=== PATIENT | female | born 1955 | race African-American/Black ===

== ENCOUNTER 2024-06-19 13:03 | Emergency (ER) | payer BC, MEDICAID ==
[~2024-06-19] VITALS: Ht 162.6 cm; Wt 52.0 kg
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
[2024-06-19] MEDS ORDERED: CYCL-837 PO (17:15)
[2024-06-19 17:46] VITALS: BP 124/78; PULSE 85; RESP 16; TEMP 97.4; O2SAT 98
== END 2024-06-19 17:50 | disposition home or self-care (01) ==
LOC: ER 13:03
DX: S20.212A Contusion of left front wall of thorax, initial encounter (principal); S40.012A Contusion of left shoulder, initial encounter; S00.83XA Contusion of other part of head, initial encounter; Z88.2 Allergy status to sulfonamides; Z88.5 Allergy status to narcotic agent; Y08.89XA Assault by other specified means, initial encounter; Y93.89 Activity, other specified; Y92.89 Other specified places as the place of occurrence of the external cause; Y99.8 Other external cause status
CPT/HCPCS: 71101; 73030

== ENCOUNTER 2024-07-19 10:03 | Emergency (ER) | payer BC, MEDICAID ==
[~2024-07-19] VITALS: Ht 167.6 cm; Wt 68.0 kg
[~2024-07-19 10:03] MED LIST: CYCL-837 PO
[2024-07-19] MEDS: ONDANSETRON HCL 4 MG/2 ML VIAL IV ONE (10:38)
[2024-07-19] MEDS: SODIUM CHLORIDE 0.9% 1,000 ML IV ONE (10:38)
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
--- NOTE | 2024-07-19 11:05 | DVH ---
CHEST RADIOGRAPH Indication: sob Technique: Single frontal view of the chest was obtained COMPARISON: None FINDINGS: Lines and Tubes: None Lungs: Mild congestion Pleura: No effusion. No pneumothorax. Cardiomediastinal contours: Unremarkable Bones: Unremarkable IMPRESSION: Mild congestion
[2024-07-19] MEDS: MORPHINE SULFATE INJ 2 MG/ml SYRG IV ONE (11:19)
[2024-07-19 11:22] LABS: Basophils # (auto) 0.1 10 ^3/uL (0-0.2); Eosinophils # (auto) 0 10 ^3/uL (0-0.8); Eosinophils % (auto) 0.4 % (0.0-7.0); Hematocrit 39.4 % (36.0-46.0); Hemoglobin 12.9 g/dL (12.2-16.2); Lymphocytes # (auto) 2.2 10 ^3/uL (0.4-5.4); Lymphocytes % (auto) 26.2 % (10.0-50.0); Mean Corpuscular Hemoglobin 27.1 pg (28.0-32.0); Mean Corpuscular Hgb Conc. 32.8 g/dL (32.0-36.0); Mean Corpuscular Volume 82.5 fL (80.0-100.0); Monocytes # (auto) 0.5 10 ^3/uL (0-1.3); Monocytes % (auto) 6.4 % (0.0-12.0); Neutrophils # (auto) 5.5 10 ^3/uL (1.6-8.6); Platelet Count (auto) 199 10^3/uL (140-450); Red Blood Cells 4.78 10^6/uL (4.0-5.20); Red Cell Distribution Width 13.9 % (11.8-14.3); White Blood Cell 8.3 10^3/uL (4.4-10.8)
[2024-07-19 11:40] LABS: Albumin 3.8 g/dL (3.2-4.8); Anion Gap 14 (5-15); BUN/Creatinine Ratio 14.1 (10.0-20.0); Bilirubin, Total 0.8 mg/dL (0.2-1.0); Blood Urea Nitrogen 12 mg/dL (9-23); Calcium 8.9 mg/dL (8.7-10.4); Carbon Dioxide 22 mmol/L (20-31); Chloride 101 mmol/L (98-107); Sodium 137 mmol/L (136-145); Total Protein 6.5 g/dL (5.7-8.2)
[2024-07-19 12:02] LABS: Alanine Aminotransferase 90 U/L (7-40); Alkaline Phosphatase 146 U/L (46-116); Aspartate Aminotransferase 77 U/L (13-40); Glucose 301 mg/dL (74-106)
[2024-07-19 12:29] VITALS: PULSE 80; RESP 18; O2SAT 99
[2024-07-19] MEDS: InsuLIN REG 1unit/0.01ml Soln (100units/ml) IV ONE (13:25)
[2024-07-19] MEDS: FUROSEMIDE 20 MG/2 ML VIAL IV ONE (13:27)
--- NOTE | 2024-07-19 18:57 | DVH ---
Procedure: US BiLat Lower DVT Study Date and Requested Time: 07/19/2024 06:29 PM History: LE edema uneven ,concern for DVT Comparison: None Technique: Multiple high resolution anderson-scale images with and without compression obtained of the bi lateral lower extremity veins, including the common femoral vein, deep femoral vein, proximal mid and distal superficial femoral vein, and popliteal vein. Additional limited images of the greater saphen ous vein also obtained. Augmentation performed as indicated. Color and spectral doppler flow images o btained as indicated. Findings: No visible intraluminal venous thrombus. No evidence of incompressibility or abnormal color or spectr al Doppler flow visualized in the bilateral lower extremity veins including, the common femoral vein, deep femoral vein, proximal mid and distal superficial femoral vein, and popliteal vein. Greater sap henous vein grossly unremarkable. Soft tissue edema bilateral lower extremities. Impression: No sonographic evidence of bilateral lower extremity deep venous thrombosis.
[2024-07-19 19:43] LABS: COVID19 ANTIGEN SOFIA FIA NEGATIVE (NEGATIVE)
[2024-07-19 19:50] LABS: Rapid Influenza A Negative (Negative)
[2024-07-19 19:51] LABS: Rapid Influenza B Positive (Negative)
[2024-07-19 19:57] VITALS: BP 137/59; TEMP 98.2
[2024-07-19 20:18] VITALS: PULSE 112; RESP 18; O2SAT 98
[2024-07-19] MEDS ORDERED: OSEL75CA5 PO (20:22)
[2024-07-19] MEDS: OSELTAMIVIR 75 MG CAP PO ONE (20:48)
--- NOTE | 2024-07-19 21:40 | DVHDS2 ---
Discharge Summary Date of Admission Date of Discharge: Jul 19, 2024 Labs/Diagnostic Data: Laboratory Results Test 07/19/24 18:30 07/19/24 11:00 Influenza Type A Antigen Negative (Negative) Influenza Type B Antigen Positive (Negative) SARS-CoV-2 Antigen (Rapid) Negative (NEGATIVE) White Blood Count 8.3 10^3/uL (4.4-10.8) Red Blood Count 4.78 10^6/uL (4.0-5.20) Hemoglobin 12.9 g/dL (12.2-16.2) Hematocrit 39.4 % (36.0-46.0) Mean Corpuscular Volume 82.5 fL (80.0-100.0) Mean Corpuscular Hemoglobin 27.1 pg (28.0-32.0) Mean Corpuscular Hemoglobin Concent 32.8 g/dL (32.0-36.0) Red Cell Distribution Width 13.9 % (11.8-14.3) Platelet Count 199 10^3/uL (140-450) Mean Platelet Volume 9.1 fL (6.9-10.8) Neutrophils (%) (Auto) 66.0 % (37.0-80.0) Lymphocytes (%) (Auto) 26.2 % (10.0-50.0) Monocytes (%) (Auto) 6.4 % (0.0-12.0) Eosinophils (%) (Auto) 0.4 % (0.0-7.0) Basophils (%) (Auto) 1.0 % (0.0-2.0) Neutrophils # (Auto) 5.5 10 ^3/uL (1.6-8.6) Lymphocytes # (Auto) 2.2 10 ^3/uL (0.4-5.4) Monocytes # (Auto) 0.5 10 ^3/uL (0-1.3) Eosinophils # (Auto) 0 10 ^3/uL (0-0.8) Basophils # (Auto) 0.1 10 ^3/uL (0-0.2) Nucleated Red Blood Cells 0.0 % Sodium Level 137 mmol/L (136-145) Potassium Level 4.0 mmol/L (3.5-5.1) Chloride Level 101 mmol/L (98-107) Carbon Dioxide Level 22 mmol/L (20-31) Anion Gap 14 (5-15) Blood Urea Nitrogen 12 mg/dL (9-23) Creatinine 0.85 mg/dL (0.550-1.02) Glomerular Filtration Rate Calc 73 mL/min (>90) BUN/Creatinine Ratio 14.1 (10.0-20.0) Serum Glucose 301 mg/dL (74-106) Calcium Level 8.9 mg/dL (8.7-10.4) Total Bilirubin 0.8 mg/dL (0.2-1.0) Aspartate Amino Transferase (AST) 77 U/L (13-40) Alanine Aminotransferase (ALT) 90 U/L (7-40) Alkaline Phosphatase 146 U/L (46-116) Troponin I High Sensitivity 5 ng/L (</=34) B-Type Natriuretic Peptide 209.91 pg/mL (0-100) Total Protein 6.5 g/dL (5.7-8.2) Albumin 3.8 g/dL (3.2-4.8) Other Laboratory Tests 07/19/24 11:00 Brief Hx & Hospital Course: Patient is a 69-year-old female with past medical history of type 2 diabetes who presents with complaints of vomiting and generalized weakness that began last night. Patient notes she has not been able to tolerate any p.o. intake. On arrival to the ER, patient's vomiting had solved. Vitals revealed sinus tachycardia with some hypertension. Patient was saturating labs did not reveal any leukocytosis CMP was notable for some mildly elevated LFTs with AST/ALT 77/90 and alk phos 146. Troponin was nonelevated. BMP was within normal limits. Patient was tested for influenza and COVID and was noted to test positive for influenza B. Patient was started on Tamiflu 75 mg twice daily for 5 days. She was discharged on this medication. Patient's weakness subsequently improved. Patient was noted to have some lower extremity swelling. Ultrasound lower extremities negative for DVT. She was given Lasix 20 mg IV x 1. Patient was discharged home in stable condition. She is to follow-up with cardiology for CHF evaluation. [facility] case management arrange follow-up appointments. Condition at Discharge: Good Final Diagnosis/Problems List Influenza B Secondary Diagnosis: Type 2 diabetes Lower extremity edema Discharge Disposition: Home Discharge Instruct/Medications Diet: Regular Activity: No Restrictions, As Tolerated Follow Up/Referral: Follow up with PCP. Medications: Tamiflu 75mg twice a day for 5 days for flu. Discharge Statement: "Patient was advised to return to the ER or call 911 if any headaches, dizziness, shortness of breath, chest pain, abdominal pain, bleeding, fevers, or worsening of medical condition. Patient was counseled about treatment plan, medications, possible side effects, patientverbalized understanding. All questions were answered to the best of my ability. This discharge took greater then 30 minutes in planning, reviewing documentation, counseling the patient, and discussing with other team members." ASSESSMENT ASSESSMENT Assessment Influenza B SHERRON MAYNARD DO Jul 19, 2024 21:39
--- NOTE | 2024-07-20 07:01 | ECG ---
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
== END 2024-07-19 20:56 | disposition home or self-care (01) ==
LOC: EDBD 10:03 → ER 10:03 → EDUNIT# 10:03 → ER 20:56
DX: I11.0 Hypertensive heart disease with heart failure (principal); I50.9 Heart failure, unspecified; E11.65 Type 2 diabetes mellitus with hyperglycemia; R11.2 Nausea with vomiting, unspecified; M79.89 Other specified soft tissue disorders; J44.9 Chronic obstructive pulmonary disease, unspecified; Z88.2 Allergy status to sulfonamides; Z88.5 Allergy status to narcotic agent; Z79.899 Other long term (current) drug therapy; Z85.05 Personal history of malignant neoplasm of liver; Z85.118 Personal history of other malignant neoplasm of bronchus and lung; Z20.822 Contact with and (suspected) exposure to COVID-19
CPT/HCPCS: 36415; 71045; 80053; 83880; 84484; 85025; 87426; 87804; 93005; 93970; 96361; 96374; 96375; 99285; J1815; J1940; J2270; J2405; J7030

== ENCOUNTER 2024-11-25 20:09 | Emergency (ER) | payer OTHER, BC, MEDICAID ==
[~2024-11-25] VITALS: Ht 162.6 cm; Wt 63.0 kg
[~2024-11-25 20:09] MED LIST changes: +OSEL75CA5 PO
[2024-11-25 20:41] LABS: Basophils # (auto) 0.1 10 ^3/uL (0-0.2); Basophils % (auto) 0.8 % (0.0-2.0); Eosinophils # (auto) 0 10 ^3/uL (0-0.8); Lymphocytes # (auto) 2.5 10 ^3/uL (0.4-5.4); Monocytes # (auto) 0.8 10 ^3/uL (0-1.3); White Blood Cell 11.3 10^3/uL (4.4-10.8)
[2024-11-25 20:43] LABS: Eosinophils % (auto) 0.1 % (0.0-7.0); Hemoglobin 12.4 g/dL (12.2-16.2); Lymphocytes % (auto) 21.7 % (10.0-50.0); Mean Corpuscular Hemoglobin 26.6 pg (28.0-32.0); Mean Corpuscular Hgb Conc. 32.6 g/dL (32.0-36.0); Mean Corpuscular Volume 81.8 fL (80.0-100.0); Monocytes % (auto) 7.3 % (0.0-12.0); Neutrophils # (auto) 7.9 10 ^3/uL (1.6-8.6); Neutrophils % (auto) 70.1 % (37.0-80.0); Nucleated Red Blood Cells % 0.1 %; Platelet Count (auto) 189 10^3/uL (140-450); Red Blood Cells 4.65 10^6/uL (4.0-5.20); Red Cell Distribution Width 14.9 % (11.8-14.3)
[2024-11-25 20:50] LABS: Chloride 96 mmol/L (98-107); Sodium 130 mmol/L (136-145)
--- NOTE | 2024-11-25 20:50 | ED.PDOC ---
HPI Comments This is a 69-year-old female who comes in with chief complaint of chest pain over the past two days. The patient is coming from home with stabbing chest pain that radiates to the lateral chest. The patient describes the chest pain is substernal and was rated as an 8/10. The patient did not take any aspirin at home and did not receive any aspirin EN route by the paramedics. She is also complaining of some shortness for breath as well as nausea and vomiting. She has had leg swelling bilaterally for the past three months. She does have a history of CHF and states that she is compliant with her medications. She denies any fever but she is experiencing a nonproductive cough. She has somewhat of a poor historian and states that her daughter is one the takes care of her. Chief Complaint: Chest Pain Time Seen by MD: 20:12 Primary Care Provider: JAVIER Mckeon Notes: Nurses Notes, Medications, Allergies (Allergies to codeine, sulfa) Allergies: Coded Allergies: Codeine (Verified Allergy, Unknown, 06/19/24) Sulfa Antibiotics (Verified Allergy, Unknown, 06/19/24) Home Meds Active Scripts Oseltamivir Phosphate (Tamiflu) 75 Mg Cap, 75 MG PO BID, #10 CAP 0 Refills Prov:SHERRON MAYNARD DO 07/19/24 Cyclobenzaprine Hcl (Cyclobenzaprine Hcl) 5 Mg Tab, 1 TAB PO TID PRN, #30 TAB Prov:BOSTON LOPEZ 06/19/24 Information Source: Patient Mode of Arrival: EMS Severity: Moderate Timing: Days (Symptoms started two days ago) Duration: Since onset Prehospital treatment: Cavalry Officer, IVF Location: Substernal Radiation: Other (Across the entire chest) Quality: Sharp, Stabbing Onset: At Rest Cardiac Risk Factors: HTN, Diabetes PE Risk Factors: None History of: Similar pain in past Modifying Factors: Nothing Associated Signs and Symptoms: SOB, N/V Past Medical History PAST MEDICAL HISTORY: Arthritis, Cancer, COPD, DM, HTN, Liver Surgical History (Other): renal surgery BOARD OPERATOR History: No Pertinent BOARD OPERATOR History Family History Family History: Family hx of Cancer Social History Smoker: Non-Smoker Alcohol: Denies ETOH Use Drugs: Marijuana Lives In: Home Constitutional: denies: chills, diaphoresis, fatigue, fever, malaise, sweats, weakness, others EENTM: denies: blurred vision, double vision, ear bleeding, ear discharge, ear drainage, ear pain, ear ringing, eye pain, eye redness, hearing loss, mouth pain, mouth swelling, nasal discharge, nose bleeding, nose congestion, nose pain, photophobia, tearing, throat pain, throat swelling, voice changes, others Respiratory: reports: cough, shortness of breath; denies: hemoptysis, orthopnea, SOB at rest, SOB with excertion, stridor, wheezing, others Cardiovascular: reports: chest pain; denies: dizzy spells, diaphoresis, Dyspnea on exertion, edema, irregular heart beat, left arm pain, lightheadedness, palpitations, PND, syncope, others Gastrointestinal: denies: abdomen distended, abdominal pain, blood streaked bowels, constipated, diarrhea, dysphagia, difficulty swallowing, hematemesis, melena, nausea, poor appetite, poor fluid intake, rectal bleeding, rectal pain, vomiting, others Genitourinary: denies: abnormal vagina bleeding, burning, dyspareunia, dysuria, flank pain, frequency, hematuria, incontinence, pain, , vagina discharge, urgency, others Neurological: denies: dizziness, fainting, headache, left sided numbness, left sided weakness, numbness, paresthesia, pre-existing deficit, right sided numbness, right sided weakness, seizure, speech problems, tingling, tremors, weakness, others Musculoskeletal: reports: others (Bilateral leg swelling); denies: back pain, gout, joint pain, joint swelling, muscle pain, muscle stiffness, neck pain Integumetry: denies: bruises, change in color, change in hair/nails, dryness, laceration, lesions, lumps, rash, wounds, others Allergic/Immunocompromised: denies: Difficulty Healing, Frequent Infections, Hives, Itching, others Hematologic/Lymphatic: denies: anemia, blood clots, easy bleeding, easy bruising, swollen glands, others Endocrine: denies: excessive hunger, excessive sweating, excessive thirst, excessive urination, flushing, intolerance to cold, intolerance to heat, unexplained weight gain, unexplained weight loss, others Psychiatric: denies: anxiety, bipolar disorder, depression, hopeless, panic disorder, schizophrenia, sleepless, suicidal, others Physical Exam General Appearance: Moderate Distress, Thin HEENT: Normal ENT Inspection, Pharynx Normal, TMs Normal Neck: Full Range of Motion, Non-Tender, Normal, Normal Inspection Respiratory: Chest Non-Tender, Lungs Clear, No Accessory Muscle Use, No Respiratory Distress, Normal Breath Sounds Cardiovascular: No Edema, No JVD, No Murmur, No Gallop, Normal Peripheral Pulses, Regular Rate/Rhythm Breast Exam: Deferred Gastrointestinal: No Organomegaly, Non Tender, No Pulsatile Mass, Normal Bowel Sounds, Soft Genitalia: Deferred Pelvic: Deferred Rectal: Deferred Extremities: Leg edema, Pedal edema Musculoskeletal : Apperance: Normal Neurologic: Alert, political geographer II-XII nml as Tested, No Motor Deficits, Normal Affect, Normal Mood, No Sensory Deficits Cerebellar Function: Normal Reflexes: Normal Skin: Dry, Normal Color, Warm Lymphatic: No Adenopathy EKG EKG : Pulse Rate (adult): 105 [place]: Normal Cardiac Rhythm: ST Hypertrophy: LAE ST: Nonsp Was a procedure done? Was a procedure done?: No CP Differential Dx Differential Diagnosis: Angina, CT, Pulmonary Embolus Differential Diagnosis: CHF Differential Diagnosis: Pericarditis X-Ray, Labs, Meds, VS Vital Signs Date Time Temp Pulse Resp B/P (MAP) Pulse Ox O2 Delivery O2 Flow Rate FiO2 11/25/24 21:00 98.3 106 22 159/89 (112) 96 98.3 11/25/24 20:50 105 11/25/24 20:15 105 11/25/24 20:10 98.2 106 20 146/89 (108) 97 98.2 Lab Test 11/25/24 21:27 11/25/24 20:33 Range/Units Troponin I High Sensitivity Pending 12 </=34 ng/L White Blood Count 11.3 H 4.4-10.8 10^3/uL Red Blood Count 4.65 4.0-5.20 10^6/uL Hemoglobin 12.4 12.2-16.2 g/dL Hematocrit 38.0 36.0-46.0 % Mean Corpuscular Volume 81.8 80.0-100.0 fL Mean Corpuscular Hemoglobin 26.6 L 28.0-32.0 pg Mean Corpuscular Hemoglobin Concent 32.6 32.0-36.0 g/dL Red Cell Distribution Width 14.9 H 11.8-14.3 % Platelet Count 189 140-450 10^3/uL Mean Platelet Volume 9.3 6.9-10.8 fL Neutrophils (%) (Auto) 70.1 37.0-80.0 % Lymphocytes (%) (Auto) 21.7 10.0-50.0 % Monocytes (%) (Auto) 7.3 0.0-12.0 % Eosinophils (%) (Auto) 0.1 0.0-7.0 % Basophils (%) (Auto) 0.8 0.0-2.0 % Neutrophils # (Auto) 7.9 1.6-8.6 10 ^3/uL Lymphocytes # (Auto) 2.5 0.4-5.4 10 ^3/uL Monocytes # (Auto) 0.8 0-1.3 10 ^3/uL Eosinophils # (Auto) 0 0-0.8 10 ^3/uL Basophils # (Auto) 0.1 0-0.2 10 ^3/uL Nucleated Red Blood Cells 0.1 % Sodium Level 130 L 136-145 mmol/L Potassium Level 4.0 3.5-5.1 mmol/L Chloride Level 96 L 98-107 mmol/L Carbon Dioxide Level 24 20-31 mmol/L Anion Gap 10 5-15 Blood Urea Nitrogen 10 9-23 mg/dL Creatinine 0.69 0.550-1.02 mg/dL Glomerular Filtration Rate Calc 93 >90 mL/min BUN/Creatinine Ratio 14.5 10.0-20.0 Serum Glucose 392 H 74-106 mg/dL Calcium Level 8.9 8.7-10.4 mg/dL B-Type Natriuretic Peptide 360.26 0-100 pg/mL Current Medications Medications (Trade) Dose Ordered Sig/[facility] Route Start Time Stop Time Status Last Admin Aspirin 162 mg ONCE ONCE PO 11/25/24 20:30 11/25/24 20:31 DC 11/25/24 20:59 IV Hep-Lock was established The patient is being given aspirin here in the emergency department's The patient's CBC shows an elevated white blood cell count 11.3 The rest of the CBC is within normal limits The chemistry panel is within normal limits The repeat EKG shows normal sinus rhythm at 98 The troponin level x2 are negative. At this time we did speak to the [facility] physician and did explain that we thought that the patient may need to be admitted. Dr. Kent will be doing the final disposition on this patient and our plan is to send the patient home to follow up with Pulmonary Images Reviewed?: Images reviewed and evaluated by me Time of 1ST Reevaluation: 20:49 Reevaluation 1ST: Unchanged Patient Education/Counseling: Diagnosis, Treatment, Prognosis Family Education/Counseling: No Family Present Departure 1 Departure Time of Disposition: 20:49 Impression: Primary Impression: Acute myocardial ischemia Disposition: 09 ADMITTED INPATIENT Admit to: [facility] Condition: Fair Critical Care Note Critical Care Time?: Yes (45 min-critical care time only) Stability Stability form required: Yes Unstable for transfer: Telemetry monitoring (Telemetry monitoring required), ED Physician Assesment (Clinical assesment) Heart Score Heart Score: Heart Score Response (Comments) Value History Moderate Suspicious 1 EKG Repolarization Disturb 1 Age >65 2 Risk Factors >3 or Hx ASHD 2 Troponin Normal limit 0 Total 6 JEAN CLAUDE VIERA MD Nov 25, 2024 20:50
[2024-11-25 20:51] LABS: Anion Gap 10 (5-15); Calcium 8.9 mg/dL (8.7-10.4); Carbon Dioxide 24 mmol/L (20-31)
[2024-11-25 20:56] LABS: BUN/Creatinine Ratio 14.5 (10.0-20.0); Blood Urea Nitrogen 10 mg/dL (9-23)
[2024-11-25 20:57] LABS: Glucose 392 mg/dL (74-106)
--- NOTE | 2024-11-25 20:57 | DVH ---
CHEST RADIOGRAPH Indication: cp Technique: Single frontal view of the chest was obtained Comparison: XY CHEST PORTABLE on DOS: 07/19/24 FINDINGS: Lines and Tubes: None Lungs: Right perihilar infiltrate extending into the right lower lobe. Recommend follow-up study afte r appropriate clinical therapy possible CT of the chest with contrast to exclude neoplastic etiology if not resolved. Pleura: No effusion. No pneumothorax. Cardiomediastinal contours: Unremarkable Bones: No acute osseous abnormality. IMPRESSION: 1. Right perihilar airspace disease extending into the right lower lobe. 2. Recommend imaging follow-up after appropriate clinical therapy. Findings do not appear significant ly changed suggest CT chest with IV contrast to exclude neoplasm.
[2024-11-25] MEDS: ASPirin 81 mg TAB PO ONE (20:59)
[2024-11-25 21:00] VITALS: PULSE 106; RESP 22; O2SAT 96
[2024-11-25] MEDS: IOHEXOL 300 MG/ML 100ML BOTTLE IJ ONE (22:05)
[2024-11-25] MEDS: MORPHINE SULFATE 4 MG/ML SYR/VIAL IV ONE (22:15)
[2024-11-25] MEDS: METOPROLOL TARTRATE 25 MG TAB PO ONE (23:21)
[2024-11-25] MEDS: FUROSEMIDE 40 MG/4 ML VIAL IV ONE (23:21)
[2024-11-25] MEDS: ACETAMINOPHEN 325 MG TAB PO ONE (23:21)
--- NOTE | 2024-11-25 23:40 | DVH ---
Procedure: CT CHEST WITH CONTRAST 11/25/2024 10:25 PM History: abnormal CXR, radiologist's recommendation Comparison: None Technique: After the uneventful administration of contrast intravenously, CT imaging was performed th rough the chest. Coronal and sagittal reformations were performed by the technologist. 3D image postprocessing was performed on a dedicated workstation and images were used for interpretat ion and reporting. Radiation Dose : CT Dose: CTDI volume is 8.07 mGy. Dose-length product is 307.36 mGy*cm CONTRAST: Type of contrast: Omnipaque 300 Contrast injected: 100 ml Findings: Lower neck: Normal thyroid. Lungs: Moderately dense focal parenchymal consolidation within the posterior right upper lobe and pat perico infiltrate within the right lower lobe. The left lung is clear. Heart/Vascular Structures: Normal heart size. No pericardial effusion. The main pulmonary artery is d ilated, measuring 4.3 cm. The ascending aorta measures 3.6 cm. Lymph Nodes: No adenopathy Pleura: No pleural effusion or significant pneumothorax. Musculoskeletal: No acute osseous abnormality. Soft tissues: Normal. Upper abdomen: The liver exhibits a moderately Hepatic morphology. 1.1 cm hypoattenuating right hepat ic lobe lesion likely represents a benign cyst. Nonobstructing 0.3 cm right superior pole nephrolith. IMPRESSION: 1. Posterior right upper lobe consolidation and patchy right lower lobe infiltrate consistent with pn eumonia.Dilated main 2. Pulmonary artery. 3. Cirrhotic hepatic morphology.Nonobstructive 4. Right nephrolithiasis.
[2024-11-26] MEDS: ONDANSETRON HCL 4 MG/2 ML VIAL IV ONE (00:42)
[2024-11-26 00:59] LABS: Urine Bacteria FEW /hpf (None Seen); Urine Blood Negative /uL (Negative); Urine Budding Yeast FEW /hpf (None Seen); Urine Clarity Clear (Clear); Urine Protein, UAD Negative (Negative); Urine Specific Gravity 1.013 (1.001-1.035); Urine Squamous Epithelial Cell None Seen /hpf (<5); Urine Urobilinogen Normal (Negative); Urine WBC 77 /HPF (0-5); Urine pH 7.5 (5.0-9.0)
[2024-11-26 01:01] LABS: Urine Color Straw (Yellow)
[2024-11-26 01:40] LABS: Amphetamine Screen, Urine Neg (NEGATIVE); Barbiturate Scree,Urine Neg (NEGATIVE); Benzodiazephine Screen, Urine Neg (NEGATIVE); Cannabinoid Screen, Urine Pos (NEGATIVE); Cocaine Screen, Urine Neg (NEGATIVE); Opiate Scree,Urine Neg (NEGATIVE)
[2024-11-26 01:41] LABS: Phencyclidine Screen, Urine Neg (NEGATIVE)
[2024-11-26] MEDS ORDERED: levoFLOXacin 500MG 100 ML IV ONE (03:45)
[2024-11-26] MEDS: levoFLOXacin 500MG 100 ML IV ONE (03:53)
[2024-11-26] MEDS ORDERED: LEVO500T91 PO (03:53)
[2024-11-26 04:00] VITALS: TEMP 98.3
[2024-11-26 04:01] VITALS: RESP 18; O2SAT 97
[2024-11-26 05:10] VITALS: BP 148/82; PULSE 76; RESP 24; O2SAT 97
--- NOTE | 2024-11-26 06:36 | ECG ---
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
--- NOTE | 2024-11-26 06:36 | ECG ---
[facility] Test Date: 2024-11-25 Test Time: 21:53:37 Pat Name: GEMA MONZON Department: ED Room: Gender: F Health Care Assistant: : 1955 Requested By: JEAN CLAUDE VIERA Order Number: [id number] Reading MD: Darin Bullard Measurements Intervals [place] Rate: 98 P: 0 SD: 183 QRS: -28 QRSD: 73 T: 132 QT: 373 QTc: 477 Interpretive Statements Sinus rhythm Borderline left axis deviation Anteroseptal infarct, age indeterminate Electronically Signed On 11-28-2024 14:43:47 PDT by Darin Bullard Please click the below link to view image of tracing.
--- NOTE | 2024-11-26 11:58 | ECG ---
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
== END 2024-11-26 05:20 | disposition home or self-care (01) ==
LOC: ER 20:09 → EDBD 20:09 → ER 11-26 05:20
DX: I51.3 Intracardiac thrombosis, not elsewhere classified (principal); J44.9 Chronic obstructive pulmonary disease, unspecified; I11.0 Hypertensive heart disease with heart failure; I50.9 Heart failure, unspecified; J98.4 Other disorders of lung; E11.9 Type 2 diabetes mellitus without complications; M19.90 Unspecified osteoarthritis, unspecified site; F12.90 Cannabis use, unspecified, uncomplicated; Z79.899 Other long term (current) drug therapy; Z88.5 Allergy status to narcotic agent; Z88.2 Allergy status to sulfonamides
CPT/HCPCS: 36415; 71045; 71260; 80048; 80307; 81001; 83880; 84484; 85025; 93005; 96365; 96375; 99291; J1938; J1956; J2405; Q9967

== ENCOUNTER 2025-03-20 19:30 | Inpatient (IN) | payer OTHER, BC, MEDICAID ==
[~2025-03-20] VITALS: Ht 162.6 cm; Wt 75.4 kg
[~2025-03-20 19:30] MED LIST changes: +LEVO500T91 PO
--- NOTE | 2025-03-20 19:46 | ECG ---
[facility] Test Date: 2025-03-20 Test Time: 19:38:15 Pat Name: GEMA MONZON Department: [facility] ED Patient ID: [id number] Room: 0276 Gender: F Sales Representative: LESA : 1955 Requested By: EMERGENCY EMERGENCY Order Number: [id number] Reading MD: Darin Bullard Measurements Intervals [place] Rate: 101 P: 71 RI: 121 QRS: -60 QRSD: 83 T: 86 QT: 340 QTc: 441 Interpretive Statements Sinus tachycardia with irregular rate Left axis deviation Probable anteroseptal infarct, old Nonspecific T abnormalities, lateral leads Baseline wander in lead(s) II Electronically Signed On 03-28-2025 21:39:05 PDT by Darin Bullard Please click the below link to view image of tracing.
--- NOTE | 2025-03-20 20:22 | ED.PDOC ---
History of Present Illness HPI Comments 70 y/o F is BIBA for c/c right hip and leg pain s/p mechanical fall and injury. Per EMS report, patient fell onto her right hip after slipping off her walker, earlier, today. Endorsement of associated weakness and poor appetite over the past few days. Denial of any further acute injuries or associated symptoms. Chief Complaint: Fall Injury Time Seen by MD: 19:40 Primary Care Provider: BINTAGE Reviewed Notes: Nurses Notes, Bit Bender Notes, Medications, Allergies Allergies: Coded Allergies: Codeine (Verified Allergy, Unknown, 06/19/24) Sulfa Antibiotics (Verified Allergy, Unknown, 06/19/24) Home Meds Active Scripts Levofloxacin Hemihydrate (LEVAQUIN 500 MG) 500 Mg Tab, 1 TAB PO DAILY for 6 Days, #6 TAB 0 Refills Prov:EZEQUIEL GUAN MD 11/26/24 Oseltamivir Phosphate (Tamiflu) 75 Mg Cap, 75 MG PO BID, #10 CAP 0 Refills Prov:SHERRON MAYNARD DO 07/19/24 Cyclobenzaprine Hcl (Cyclobenzaprine Hcl) 5 Mg Tab, 1 TAB PO TID PRN, #30 TAB Prov:BOSTON LOPEZ 06/19/24 Information Source: Patient, Emergency Med Personnel Mode of Arrival: EMS Severity: Moderate Timing: Hours Duration: Since onset Prehospital treatment: None Past Medical History PAST MEDICAL HISTORY: Arthritis, Cancer, COPD, DM, HTN, Liver TOMOGRAPHIC TECH History: No Pertinent TOMOGRAPHIC TECH History Family History Family History: Family hx of Cancer Social History Smoker: Non-Smoker Alcohol: Denies ETOH Use Drugs: Marijuana Lives In: Home All Other Systems: Reviewed and Negative (as per HPI) Physical Exam General Appearance: Mild Distress, Normal HEENT: Normal ENT Inspection, Pharynx Normal, TMs Normal Neck: Full Range of Motion, Non-Tender, Normal, Normal Inspection Respiratory: Chest Non-Tender, Lungs Clear, No Accessory Muscle Use, No Respiratory Distress, Normal Breath Sounds Cardiovascular: No Edema, No JVD, No Murmur, No Gallop, Normal Peripheral Pulses, Regular Rate/Rhythm Breast Exam: Deferred Gastrointestinal: No Organomegaly, Non Tender, No Pulsatile Mass, Normal Bowel Sounds, Soft Genitalia: Deferred Pelvic: Deferred Rectal: Deferred Extremities: No calf tenderness, Normal capillary refill, Normal range of motion, No pedal edema, Tender (right hip with shortening and external rotation of the right leg) Musculoskeletal : Apperance: Normal Neurologic: Alert (at baseline per EMS report, with a Hx of dementia ), network relations consultant II- XII nml as Tested, No Motor Deficits, Normal Affect, Normal Mood, No Sensory Deficits Cerebellar Function: Normal Reflexes: Normal Skin: Dry, Normal Color, Warm Lymphatic: No Adenopathy Was a procedure done? Was a procedure done?: No EKG EKG : Pulse Rate (adult): 101 [place]: Normal Cardiac Rhythm: ST Block: None Hypertrophy: None ST: Normal Differential Dx Considerations may include: fracture, contusion, sprain, viral syndrome,PNA, UTI, among others X-Ray, Labs, Meds, VS Vital Signs Date Time Temp Pulse Resp B/P (MAP) Pulse Ox O2 Delivery O2 Flow Rate FiO2 03/20/25 20:22 101 03/20/25 19:38 101 03/20/25 19:35 101.0 99 15 128/76 93 101.0 Lab Test 03/20/25 20:50 03/20/25 19:56 03/20/25 19:55 Range/Units White Blood Count 4.0 L 4.4-10.8 10^3/uL Red Blood Count 3.72 L 4.0-5.20 10^6/uL Hemoglobin 10.0 L 12.2-16.2 g/dL Hematocrit 31.1 L 36.0-46.0 % Mean Corpuscular Volume 83.6 80.0-100.0 fL Mean Corpuscular Hemoglobin 27.0 L 28.0-32.0 pg Mean Corpuscular Hemoglobin Concent 32.3 32.0-36.0 g/dL Red Cell Distribution Width 15.0 H 11.8-14.3 % Platelet Count 130 L 140-450 10^3/uL Mean Platelet Volume 9.6 6.9-10.8 fL Neutrophils (%) (Auto) 63.6 37.0-80.0 % Lymphocytes (%) (Auto) 24.8 10.0-50.0 % Monocytes (%) (Auto) 10.9 0.0-12.0 % Eosinophils (%) (Auto) 0.2 0.0-7.0 % Basophils (%) (Auto) 0.5 0.0-2.0 % Neutrophils # (Auto) 2.5 1.6-8.6 10 ^3/uL Lymphocytes # (Auto) 1.0 0.4-5.4 10 ^3/uL Monocytes # (Auto) 0.4 0-1.3 10 ^3/uL Eosinophils # (Auto) 0 0-0.8 10 ^3/uL Basophils # (Auto) 0 0-0.2 10 ^3/uL Nucleated Red Blood Cells 0.2 % Prothrombin Time 12.3 H 9.3-11.8 sec Prothrombin Time INR 1.18 H 0.9-1.15 Activated Partial Thromboplast Time 29.5 24.5-34.5 SEC Sodium Level 134 L 136-145 mmol/L Potassium Level 4.1 3.5-5.1 mmol/L Chloride Level 100 98-107 mmol/L Carbon Dioxide Level 25 20-31 mmol/L Anion Gap 9 5-15 Blood Urea Nitrogen 18 9-23 mg/dL Creatinine 0.99 0.550-1.02 mg/dL Glomerular Filtration Rate Calc 61 >90 mL/min BUN/Creatinine Ratio 18.2 10.0-20.0 Serum Glucose 563 *H 74-106 mg/dL Lactic Acid Level 1.4 0.4-2.0 mmol/L Calcium Level 8.4 L 8.7-10.4 mg/dL Magnesium Level 1.4 L 1.6-2.6 mg/dL Total Bilirubin 1.4 H 0.2-1.0 mg/dL Aspartate Amino Transferase (AST) 99 H 13-40 U/L Alanine Aminotransferase (ALT) 190 H 7-40 U/L Alkaline Phosphatase 247 H 46-116 U/L Total Protein 6.6 5.7-8.2 g/dL Albumin 3.3 3.2-4.8 g/dL POC Glucose 546 *H 496 *H 70-106 mg/dl Current Medications Medications (Trade) Dose Ordered Sig/[place] Route Start Time Stop Time Status Last Admin Sodium Chloride 1,000 ml @ 1,000 mls/hr Q1H ONCE IV 03/20/25 20:15 03/20/25 21:14 DC 03/20/25 22:22 Piperacillin Sod/ Tazobactam Sod 100 ml @ 100 mls/hr ONCE ONCE IV 03/20/25 20:15 03/20/25 21:14 DC 03/20/25 22:22 Time of 1ST Reevaluation: 20:20 Reevaluation 1ST: Unchanged Patient Education/Counseling: Treatment Family Education/Counseling: No Family Present SEPSIS Sepsis Screen Date sepsis recognized/suspect: Mar 20, 2025 Time Sepsis recognized/suspect: 1934 Recent Procedure: No On Antibiotic Therapy: No Respiratory Rate >20: No Heart Rate >90: Yes Temp<36 C (96.8 F) or >38.3 C: Yes SBP <90 or MAP <65 mmHG: No New Acute Mental Status Change: No Is the patient on CPAP, BIPAP,: No Physician Orders Urinalysis (03/20/25 20:14) Blood Culture (03/20/25 20:14) R Hip Complete Xray (03/20/25 20:14) Chest Xray 1 View (03/20/25 20:14) Insulin R (Human) (Insulin R) (03/20/25 22:45) Vital Signs Date Time Temp Pulse Resp B/P (MAP) Pulse Ox O2 Delivery O2 Flow Rate FiO2 03/20/25 20:22 101 03/20/25 19:38 101 03/20/25 19:35 101.0 99 15 128/76 93 101.0 Laboratory Tests Test 03/20/25 20:50 Lactic Acid Level 1.4 mmol/L (0.4-2.0) White Blood Count 4.0 10^3/uL (4.4-10.8) L Medications Medications Dose Ordered Sig/[place] Route Start Time Stop Time Status Last Admin Dose Admin Piperacillin Sod/ Tazobactam Sod 100 ml @ 100 mls/hr ONCE ONCE IV 03/20/25 20:15 03/20/25 21:14 DC 03/20/25 22:22 Sodium Chloride 1,000 ml @ 1,000 mls/hr Q1H ONCE IV 03/20/25 20:15 03/20/25 21:14 DC 03/20/25 22:22 Departure 1 Departure Time of Disposition: 22:31 Impression: Primary Impression: Uncontrolled diabetes mellitus Additional Impressions: Hyperglycemia due to type 2 diabetes mellitus Dementia Fracture of hip, right, closed Disposition: ADMITTED INPATIENT Admit to: Med Surg Condition: Guarded Comments 70-year-old female with a history of dementia now had a fall at home and has a closed right hip fracture. Also severe hyperglycemia with type 2 diabetes. Patient had low-grade fever upon arrival and was given IV fluids and Zosyn. Patient was given insulin. Patient will need to be admitted for supportive care and further workup and orthopedic consultation. Critical Care Note Critical Care Time?: Yes (35 min-critical care time only) Critical care comment: Total critical care time: Approximately 36 minutes Due to a high probability of clinically significant, life threatening de terioration, the patient required my highest level of preparedness to intervene emergently and I personally spent this critical care time directly and personally managing the patient. This critical care time included obtaining a history; examining the patient; pulse oximetry; ordering and review of studies; arranging urgent treatment with development of a management plan; evaluation of patient's response to treatment; frequent reassessment; and, discussions with other providers. This critical care time was performed to assess and manage the high probability of imminent, life-threatening deterioration that could result in multi-organ failure. It was exclusive of separately billable procedures and treating other patients. Stability Stability form required: No Heart Score Heart Score: Heart Score Response (Comments) Value History N/A 0 EKG N/A 0 Age N/A 0 Risk Factors N/A 0 Troponin N/A 0 Total 0 I personally scribed for CHRISTIANO COATES MD ([email or web address]) on 03/20/25 at 20:22. Electronically submitted by Calvin Romano [email or web address]). CHRISTIANO COATES MD Mar 20, 2025 20:22
[2025-03-20 21:21] LABS: Hematocrit 31.1 % (36.0-46.0); Hemoglobin 10.0 g/dL (12.2-16.2); Mean Corpuscular Hemoglobin 27.0 pg (28.0-32.0); Mean Corpuscular Volume 83.6 fL (80.0-100.0); Nucleated Red Blood Cells % 0.2 %
[2025-03-20 21:36] LABS: INR 1.18 (0.9-1.15); Partial Thromboplastin Time 29.5 SEC (24.5-34.5); Prothrombin Time 12.3 sec (9.3-11.8)
[2025-03-20 21:38] LABS: Albumin 3.3 g/dL (3.2-4.8); Anion Gap 9 (5-15); BUN/Creatinine Ratio 18.2 (10.0-20.0); Blood Urea Nitrogen 18 mg/dL (9-23); Carbon Dioxide 25 mmol/L (20-31); Chloride 100 mmol/L (98-107); Potassium 4.1 mmol/L (3.5-5.1); Total Protein 6.6 g/dL (5.7-8.2)
[2025-03-20 21:44] LABS: Alanine Aminotransferase 190 U/L (7-40); Alkaline Phosphatase 247 U/L (46-116); Bilirubin, Total 1.4 mg/dL (0.2-1.0); Calcium 8.4 mg/dL (8.7-10.4); Sodium 134 mmol/L (136-145)
[2025-03-20 21:45] LABS: Magnesium 1.4 mg/dL (1.6-2.6)
[2025-03-20 21:54] LABS: Glucose 563 mg/dL (74-106)
[2025-03-20] MEDS: SODIUM CHLORIDE 0.9% 1,000 ML IV ONE (22:22)
[2025-03-20] MEDS: PIPERACILLIN-TAZOB 3.375GM 100 ML IV ONE (22:22)
--- NOTE | 2025-03-20 22:23 | DVH ---
CHEST RADIOGRAPH Indication: sob / fever Technique: Single frontal view of the chest was obtained COMPARISON: CT CHEST WITH CONTRAST on DOS: 11/25/24, XY CHEST PORTABLE on DOS: 11/25/24, XY CHEST PORTABL E on DOS: 07/19/24, XY L RIB X RAY on DOS: 06/19/24, CH-RIBS UNI-PA CHEST on DOS: 01/20/20 FINDINGS: Lungs and pleural spaces are clear. Cardiac silhouette and car are within normal limits. Bones and s oft tissues demonstrate no significant abnormality. IMPRESSION: 1. No acute disease.
--- NOTE | 2025-03-20 22:24 | DVH ---
CLINICAL INDICATION: right hip pain TECHNIQUE: XYXY R HIP COMPLETE XRAY Comparison: None FINDINGS/IMPRESSION: : Minimal displaced transversely oriented intertrochanteric proximal right femoral fracture with subtro chanteric extension. [id number] various angulation. Hip joint is congruent.
[2025-03-20 22:38] VITALS: PULSE 100; RESP 14; O2SAT 95
[2025-03-20] MEDS: InsuLIN REG 1unit/0.01ml Soln (100units/ml) SC ONE (23:05)
--- NOTE | 2025-03-20 23:27 | DVHHPRES ---
History of Present Illness Resident Creating Document: TERESA CONNORS RESIDENT History of Present Illness Mariel Bettencourt is a 70-year-old female patient who presents to the ED brought by EMS due to mechanical fall at home with no loss of consciousness. Per patient she slipped and fell, hit her right thigh and could not bear her own weight, prompting her visit to the ED. Patient is a poor historian with questionable history of dementia. Obtained information from EMR and daughter (Layla). Patient has been in home hospice care since June 2024 due to stage IV lung cancer with metastases to liver, revoked hospice due to recent mechanical fall. Patient denies any other associated symptoms. 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 Bilateral carpal tunnel surgery Family history: Mother had unspecified cancer Social history: Lives in [place] with daughter (she was on home hospice) ex tobacco abuse (approximately 10 pack-year history of smoking), quit 10 years ago. Continue smoking marijuana. Ex ethanol abuse, ex methamphetamine and ex cocaine abuse, quit approximately 10 years ago. Denies current tobacco, alcohol and other drug abuse Allergies: Codeine and sulfas Home medication: Lorazepam, oxycodone, potassium, daughter does not recall any other medication. Patient seen and examined at bedside. Currently has right thigh pain. No other complaint Past Medical History Per HPI Past Surgical History Per HPI Family History Per HPI Past Social History Per HPI Review of Systems Review of Systems Per HPI Allergies: Coded Allergies: Codeine (Verified Allergy, Unknown, 06/19/24) Sulfa Antibiotics (Verified Allergy, Unknown, 06/19/24) Exam Vital Signs Vital Signs Date Time Temp Pulse Resp B/P (MAP) Pulse Ox O2 Delivery O2 Flow Rate FiO2 03/20/25 22:38 100 14 95 Room Air* 0 21 03/20/25 22:26 98.6 152/83 (106) 98.6 Exam Patient lying in bed, in mild acute distress General: [place], afebrile, mucosae are moist Cardiovascular: Normal S1 and S2. No murmurs, gallops or rubs Respiratory: Normal ventilation mechanics. Clear lung sounds on auscultation Abdomen: Soft, nontender, no organomegaly, normal bowel sounds MSK/skin: Mobilizes all limbs accept right lower limb due to pain. Right lower limb is shortened, externally rotated and nonfunctional. Skin is dry and warm Neurological: Oriented in 2 spheres (not time). No motor no sensitive deficits. Pupils are isocoric and reactive Labs/Xrays Labs Test 03/20/25 22:59 03/20/25 20:50 Range/Units POC Glucose 496 *H 70-106 mg/dl White Blood Count 4.0 L 4.4-10.8 10^3/uL Red Blood Count 3.72 L 4.0-5.20 10^6/uL Hemoglobin 10.0 L 12.2-16.2 g/dL Hematocrit 31.1 L 36.0-46.0 % Mean Corpuscular Volume 83.6 80.0-100.0 fL Mean Corpuscular Hemoglobin 27.0 L 28.0-32.0 pg Mean Corpuscular Hemoglobin Concent 32.3 32.0-36.0 g/dL Red Cell Distribution Width 15.0 H 11.8-14.3 % Platelet Count 130 L 140-450 10^3/uL Mean Platelet Volume 9.6 6.9-10.8 fL Neutrophils (%) (Auto) 63.6 37.0-80.0 % Lymphocytes (%) (Auto) 24.8 10.0-50.0 % Monocytes (%) (Auto) 10.9 0.0-12.0 % Eosinophils (%) (Auto) 0.2 0.0-7.0 % Basophils (%) (Auto) 0.5 0.0-2.0 % Neutrophils # (Auto) 2.5 1.6-8.6 10 ^3/uL Lymphocytes # (Auto) 1.0 0.4-5.4 10 ^3/uL Monocytes # (Auto) 0.4 0-1.3 10 ^3/uL Eosinophils # (Auto) 0 0-0.8 10 ^3/uL Basophils # (Auto) 0 0-0.2 10 ^3/uL Nucleated Red Blood Cells 0.2 % Prothrombin Time 12.3 H 9.3-11.8 sec Prothrombin Time INR 1.18 H 0.9-1.15 Activated Partial Thromboplast Time 29.5 24.5-34.5 SEC Sodium Level 134 L 136-145 mmol/L Potassium Level 4.1 3.5-5.1 mmol/L Chloride Level 100 98-107 mmol/L Carbon Dioxide Level 25 20-31 mmol/L Anion Gap 9 5-15 Blood Urea Nitrogen 18 9-23 mg/dL Creatinine 0.99 0.550-1.02 mg/dL Glomerular Filtration Rate Calc 61 >90 mL/min BUN/Creatinine Ratio 18.2 10.0-20.0 Serum Glucose 563 *H 74-106 mg/dL Lactic Acid Level 1.4 0.4-2.0 mmol/L Calcium Level 8.4 L 8.7-10.4 mg/dL Magnesium Level 1.4 L 1.6-2.6 mg/dL Total Bilirubin 1.4 H 0.2-1.0 mg/dL Aspartate Amino Transferase (AST) 99 H 13-40 U/L Alanine Aminotransferase (ALT) 190 H 7-40 U/L Alkaline Phosphatase 247 H 46-116 U/L Total Protein 6.6 5.7-8.2 g/dL Albumin 3.3 3.2-4.8 g/dL SEPSIS Sepsis Screen Date sepsis recognized/suspect: Mar 20, 2025 Time Sepsis recognized/suspect: 1934 Recent Procedure: No On Antibiotic Therapy: No Respiratory Rate >20: No Heart Rate >90: Yes Temp<36 C (96.8 F) or >38.3 C: Yes SBP <90 or MAP <65 mmHG: No New Acute Mental Status Change: No Is the patient on CPAP, BIPAP,: No Physician Orders Urinalysis (03/20/25 20:14) Blood Culture (03/20/25 20:14) R Hip Complete Xray (03/20/25 20:14) Chest Xray 1 View (03/20/25 20:14) * Orthopedic Consult (03/20/25 22:45) Admit (03/20/25 23:22) Code Status (03/20/25 23:22) 0.9% Ns 1000 Ml (03/20/25 23:30) Acetaminophen Tablet (Tylenol Tablet) (03/20/25 23:30) Complete Blood Count (03/21/25 04:00) Comprehensive Metabolic Panel (03/21/25 04:00) Npo (Nothing By Mouth) Diet (9/25/25 Breakfast) Morphine Sulfate Injection (03/20/25 23:30) Emergency Dysrhythmia Protocol (03/20/25 23:22) Rhythm Strips Once Every Shift (03/20/25 23:22) Vital Signs Date Time Temp Pulse Resp B/P (MAP) Pulse Ox O2 Delivery O2 Flow Rate FiO2 03/20/25 22:38 100 14 95 Room Air* 0 21 03/20/25 22:26 98.6 100 14 152/83 (106) 95 98.6 03/20/25 20:22 101 03/20/25 19:38 101 03/20/25 19:35 101.0 99 15 128/76 93 101.0 Laboratory Tests Test 03/20/25 20:50 Lactic Acid Level 1.4 mmol/L (0.4-2.0) White Blood Count 4.0 10^3/uL (4.4-10.8) L Medications Medications Dose Ordered Sig/[place] Route Start Time Stop Time Status Last Admin Dose Admin Insulin Human Regular 6 units ONCE ONCE SC 03/20/25 22:45 03/20/25 22:46 DC 03/20/25 23:05 6 UNITS Piperacillin Sod/ Tazobactam Sod 100 ml @ 100 mls/hr ONCE ONCE IV 03/20/25 20:15 03/20/25 21:14 DC 03/20/25 22:22 100 MLS/HR Sodium Chloride 1,000 ml @ 1,000 mls/hr Q1H ONCE IV 03/20/25 20:15 03/20/25 21:14 DC 03/20/25 22:22 1,000 MLS/HR Assessment/Plan Assessment/Plan ASSESSMENT Sepsis probably secondary to pneumonia Stage IV lung cancer with liver metastases Mechanical fall with no loss of consciousness or head trauma Acute nondisplaced fracture Home hospice-revoked Liver cirrhosis secondary to hepatitis-C Pancytopenia probably secondary to liver cirrhosis Simple hyperglycemia Hypertension Dyslipidemia Diabetes History of CHF (unknown LVEF) in no exacerbation COPD/asthma in no exacerbation, on home oxygen at 3 L/min Questionable dementia PLAN Patient was on home hospice, but revoked to be admitted and treated Completed hip x-ray: Minimal displaced transversely oriented intertrochanteric proximal right femoral fracture with subtrochanteric extension. [id number] various angulation. administrative specialist consulted, pending. Obtain yancey cultures (blood, sputum and urine) Currently under empiric IV antibiotic (Zosyn and vancomycin) Ordered Bergeron catheter placement since minimal mobilization increases pain of patient. Optimize pain medication Ordered head CT due to questionable head trauma (per patient she did not have head trauma) Goals of care discussed with patient and daughter for over 18 minutes: DNR/DNI Discussed plan with Dr. Santiago, patient, family (Daughter Layla) and nurses: Patient revoked home hospice care due to mechanical fall, evidence of right femoral fracture, tool specialist was consulted. Due to sepsis, obtain yancey cultures and currently under empiric IV antibiotic. Patient has poor prognosis. Plan discussed with: Patient, Daughter (Layla), Other (Nurses) My Orders Orders - TERESA CONNORS Procedure Category Date Status Time Admit ADMIT 03/20/25 Verified 23:22 Code Status CODE 03/20/25 Verified 23:22 0.9% Ns 1000 Ml PHA 03/20/25 Verified 23:30 Acetaminophen Tablet PHA 03/20/25 Verified (Tylenol Tablet) 23:30 Complete Blood Count LAB 03/21/25 Verified 04:00 Comprehensive LAB 03/21/25 Verified Metabolic Panel 04:00 Npo (Nothing By DIET 03/21/25 Verified Mouth) Diet Breakfast Morphine Sulfate PHA 03/20/25 Verified Injection 23:30 Emergency Dysrhythmia BETINA 03/20/25 Verified Protocol 23:22 Rhythm Strips Once BETINA 03/20/25 Verified Every Shift 23:22 Date of Service: Mar 20, 2025 Billing Provider: SANTANA SANTIAGO MD Common Visit Codes: [id number] INP/OBS CARE (HIGH) Secondary Visit Codes: [id number] CARE PLAN 30 MINUTES TERESA CONNORS Mar 20, 2025 23:27
[2025-03-20] MEDS ORDERED: VANCOMYCIN PER PHARMACY 0 MG IV SCH (23:30)
[2025-03-20] MEDS: SODIUM CHLORIDE 0.9% 1,000 ML IV SCH (23:30)
[2025-03-20] MEDS ORDERED: DEXTROSE (50%) 50ML SYRG IV PRN (23:30)
[2025-03-20] MEDS: VANCOMYCIN 1.5GM/250ML IV ONE (23:45)
[2025-03-21] VITALS (9 sets, daily range): BP systolic 112–161; BP diastolic 64–96; PULSE 87–98; RESP 16–20; TEMP 97.7–102.3; O2SAT 94–96
[2025-03-21] MEDS: ACCU-CHEK COMFORT CURVE STRIP VI SCH
--- NOTE | 2025-03-21 00:01 | DVH ---
CHEST RADIOGRAPH Indication: MEchanical fall with pain Technique: Single frontal view of the chest was obtained COMPARISON: XY CHEST XRAY 1 VIEW on DOS: 03/20/25, CT CHEST WITH CONTRAST on DOS: 11/25/24, XY CHEST POR TABLE on DOS: 11/25/24, XY CHEST PORTABLE on DOS: 07/19/24, XY L RIB X RAY on DOS: 06/19/24 FINDINGS: Liver assessment due to overlapping soft tissues. Lungs and pleural spaces are clear. Cardiac silhouette and cra are within normal limits. Bones and s oft tissues demonstrate no significant abnormality. IMPRESSION: 1. No acute disease.
[2025-03-21] MEDS: MAGNESIUM SULFATE 1GM/100ML 100 ML IV SCH ×2 (01:00→04:52)
[2025-03-21] MEDS: InsuLIN REG 1unit/0.01ml Soln (100units/ml) SC SCH (01:31)
[2025-03-21 01:50] LABS: Base Excess -1.2 mmol/L (-2.0-3.0)
[2025-03-21] MEDS: MORPHINE SULFATE INJ 2 MG/ml SYRG IV PRN (02:52)
[2025-03-21 02:55] LABS: Benzodiazephine Screen, Urine Neg (NEGATIVE); Urine Protein, UAD 2+ (Negative); Urine WBC Clumps PRESENT /hpf (None Seen)
[2025-03-21 02:56] LABS: Amphetamine Screen, Urine Neg (NEGATIVE); Barbiturate Scree,Urine Neg (NEGATIVE); Cannabinoid Screen, Urine Neg (NEGATIVE); Cocaine Screen, Urine Neg (NEGATIVE); Phencyclidine Screen, Urine Neg (NEGATIVE)
[2025-03-21 02:57] LABS: Opiate Scree,Urine Neg (NEGATIVE)
[2025-03-21] MEDS: PIPERACILLIN-TAZOB 3.375GM 100 ML IV SCH (06:13)
[2025-03-21] MEDS ORDERED: HYDR-3682 PO (06:26)
[2025-03-21] MEDS ORDERED: ASPI1TAB20 PO (06:26)
[2025-03-21] MEDS ORDERED: GABA-1250 PO (06:26)
[2025-03-21] MEDS ORDERED: HAL5T PO (06:26)
[2025-03-21] MEDS ORDERED: POTA-215 PO (06:26)
[2025-03-21] MEDS ORDERED: TRAZ-228 PO (06:26)
[2025-03-21] MEDS ORDERED: TEMA30CA PO (06:26)
[2025-03-21] MEDS ORDERED: OXY5T PO (06:26)
[2025-03-21] MEDS ORDERED: LORA-1123 PO (06:26)
[2025-03-21] MEDS ORDERED: PANT1INJ3 PO (06:26)
[2025-03-21] MEDS ORDERED: FURO20TA3 PO (06:26)
[2025-03-21 07:11] LABS: Hematocrit 30.0 % (36.0-46.0); Hemoglobin 9.9 g/dL (12.2-16.2); Mean Corpuscular Hemoglobin 27.0 pg (28.0-32.0); Mean Corpuscular Volume 81.9 fL (80.0-100.0); Nucleated Red Blood Cells % 0.1 %
[2025-03-21 07:27] LABS: Anion Gap 11 (5-15); Carbon Dioxide 22 mmol/L (20-31)
[2025-03-21 07:28] LABS: BUN/Creatinine Ratio 20.5 (10.0-20.0); Blood Urea Nitrogen 15 mg/dL (9-23); Magnesium 2.0 mg/dL (1.6-2.6); Total Protein 6.7 g/dL (5.7-8.2)
[2025-03-21 07:29] LABS: Albumin 3.3 g/dL (3.2-4.8)
[2025-03-21 07:31] LABS: Alanine Aminotransferase 174 U/L (7-40); Alkaline Phosphatase 229 U/L (46-116); Bilirubin, Total 1.3 mg/dL (0.2-1.0); Calcium 8.6 mg/dL (8.7-10.4); Chloride 104 mmol/L (98-107); Glucose 206 mg/dL (74-106); Potassium 3.5 mmol/L (3.5-5.1); Sodium 137 mmol/L (136-145)
[2025-03-21] MEDS: ENOXAPARIN SOD 40 MG/0.4 ML SYRINGE SC SCH (09:46)
[2025-03-21] MEDS: ACETAMINOPHEN 325 MG TAB PO PRN (09:46)
--- NOTE | 2025-03-21 10:39 | DVH ---
CLINICAL HISTORY: Mechanical fall with no loss of consciousness TECHNIQUE: Helical scanning was performed of the head from the skull base to the vertex. Multiplanar reconstructions were performed. This exam was performed according to our departmental dose optimizat ion program. Up-to-date CT equipment and radiation dose reduction techniques are utilized as appropri ate. CTDI 48 DLP 1738 COMPARISON: CT HEAD WO on DOS: 05/03/23 FINDINGS: There is no evidence for acute intracranial hemorrhage, acute ischemic changes, mass, mass effect, or extra-axial fluid collection. There is no hydrocephalus or midline shift. There is no effacement of the cerebral sulci and basal subarachnoid cisterns. The anderson-white matter differentiation is well teresa ntained. The mild brain volume loss and minimal chronic small vessel ischemic change. 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 The imaged paranasal sinuses are clear. IMPRESSION: NO ACUTE INTRACRANIAL ABNORMALITY SEEN.
[2025-03-21] MEDS: VANCOMYCIN 1.25GM/250ML 250 ML IV ONE (11:27)
[2025-03-21 13:42] LABS: COVID19 ANTIGEN SOFIA FIA NEGATIVE (NEGATIVE)
--- NOTE | 2025-03-21 14:05 | DVHHP2 ---
History Allergies: Coded Allergies: Codeine (Verified Allergy, Unknown, 06/19/24) Sulfa Antibiotics (Verified Allergy, Unknown, 06/19/24) Chief Complaint: right hip pain s/p mechanical fall at Hospice on 03/20/24 Present Illness(Onset/Duration Mechanical fall at hospice on 03/20/25 , in Hospice for Stage 4 lung CA, cirrhosis/hep C, COPD/asthma non contributory Past Surgical History non- contributory Medications see H and P Physical Exam Skin intact EENT NCAT Chest and Lungs dec snds B Heart RRR neg mrg Abdomen NBS ND NT Extremities Right groin pain with PROM Right LE Vital Signs Vital Signs Date Time Temp Pulse Resp B/P (MAP) Pulse Ox O2 Delivery O2 Flow Rate FiO2 03/21/25 12:07 97.9 97.9 03/21/25 12:07 88 16 123/67 03/21/25 09:00 94 03/21/25 08:00 Room Air* 0 21 Impressions/Description 70F, significant PMH, end of life, Hospice right subtroch femur fracture Plan will discuss conservative care vs ORIF with family CLAIRE PEREZ MD Mar 21, 2025 14:05
--- NOTE | 2025-03-21 16:11 | DVHPN2 ---
Progress Note Date Seen: Mar 21, 2025 Medical Necessity Reason Pt with a Central, PICC or Fol: Yes The following are medically ne: Razo Catheter Reason for razo catheter: Strict I&O Subjective Patient reports: No new complaints Review of Systems: HEENT:Normal, CVS:Normal, RESPIRATORY:Normal, GI:Normal, :Normal, MSK:Normal, NEURO:Normal Objective vital signs Vital Sign Date Time Temp Pulse Resp B/P (MAP) Pulse Ox O2 Delivery O2 Flow Rate FiO2 03/21/25 12:07 97.9 97.9 03/21/25 12:07 88 16 123/67 03/21/25 09:00 94 03/21/25 08:00 Room Air* 0 21 Total Intake and Output 03/20/25 03/20/25 03/21/25 15:00 23:00 07:00 Intake Total 0 ml Balance 0 ml medications Current Medications Medications Dose Ordered Sig/[place] Route Start Time Stop Time Status Last Admin Dose Admin Sodium Chloride 1,000 ml @ 60 mls/hr [id number] IV 03/20/25 23:30 Acetaminophen 325 mg Q4HP PRN PO 03/20/25 23:30 03/21/25 09:46 325 MG Morphine Sulfate 2 mg Q4HPRN PRN IV 03/20/25 23:30 03/21/25 11:37 2 MG Enoxaparin Sodium 40 mg DAILY SC 03/21/25 10:00 03/21/25 09:46 40 MG Diagnostic Test (Pha) 1 strip IQ4HR 03/21/25 00:00 03/21/25 13:09 1 STRIP Insulin Human Regular IQ4HR SC 03/21/25 00:00 03/21/25 13:16 6 UNITS Dextrose 50 ml UD PRN IV 03/20/25 23:30 Piperacillin Sod/ Tazobactam Sod 100 ml @ 25 mls/hr Q8HR IV 03/21/25 06:00 03/21/25 13:17 25 MLS/HR Vancomycin HCl 0 ml @ 0 mls/hr UD IV 03/20/25 23:30 Vancomycin HCl 100 ml @ 100 mls/hr Q12H IV 03/21/25 23:00 Examination: GENERAL:Normal, HEENT:Normal, NECK:Normal, LUNGS:Normal, CVS:Normal, ABDOMEN:Normal, MSK:Normal, SKIN:Normal, NEURO:Normal, :Normal laboratory and microbiology Laboratory Tests 03/21/25 05:39 Test 03/21/25 05:39 Range/Units Serum Glucose 206 H 74-106 mg/dL Problem List/Assessment/Plan Problem List/Assessment/Plan #1 right hip fracture: ortho eval #2 sepsis with uti: iv antibiotics #3 liver cirrhosis #4 uncontrolled dm: ssi #5 encephalopathy- metabolic #6 anemia #7 ?hep c #8 ?mets lung cancer advance care planning- dnr- time spent 19 mins Plan discussed with: Patient My Orders My Orders Orders - REMA MIDDLETON MD Procedure Category Date Status Time Ct Ab Pel Wo Con-No CT 03/21/25 Verified Oral Or Iv 16:03 Consistent DIET 03/21/25 Verified Carb(Ccho)Diabetes Dinner Complete Blood Count LAB 03/22/25 Verified 06:00 Comprehensive LAB 03/22/25 Verified Metabolic Panel 06:00 Ammonia LAB 03/22/25 Verified 06:00 Acute Hepatitis Panel LAB 03/21/25 Verified 16:03 Date of Service: Mar 21, 2025 Billing Provider: REMA MIDDLETON MD Common Visit Codes: [id number] INP/OBS CARE(HIGH) Secondary Visit Codes: [id number] CARE PLAN 30 MINUTES REMA MIDDLETON MD Mar 21, 2025 16:11
--- NOTE | 2025-03-21 18:18 | DVH ---
Exam: CT CT AB PEL WO CON-NO ORAL OR IV History: ABD PAIN Comparison Study: None TECHNIQUE: Multidetector CT of the abdomen and pelvis was performed from lung bases to pubic symphysi s. Imaging was performed without IV contrast. Axial, coronal, and sagittal multiplanar reformats were obtained from the axial data set by the technologist. RADIATION DOSE: DLP 333.03 mGy.cm; CTDI vol 6.96 mGy. Findings: Limited evaluation given noncontrast technique. Lungs: Left lower lobe atelectasis. Heart: No cardiomegaly or pericardial effusion. Liver: Unremarkable. Gallbladder: Cholelithiasis without evidence of acute cholecystitis. Spleen: Unremarkable Pancreas: Unremarkable Adrenals: Unremarkable Kidneys: Nonobstructive right nephrolithiasis. GI tract: Diverticulosis without evidence of acute diverticulitis. : The urinary bladder is decompressed via Bergeron catheter. Vasculature: Unremarkable Lymphadenopathy: Absent Peritoneum: No ascites Musculoskeletal: Mild multilevel degenerative changes of the thoracolumbar spine. Mildly displaced ri ght intertrochanteric fracture. Soft tissues: Unremarkable Impression: 1. Limited evaluation given noncontrast technique. 2. No definite acute abdominopelvic abnormalities. 3. Diverticulosis without evidence of acute diverticulitis. 4. Cholelithiasis without evidence of acute cholecystitis.
[2025-03-21] MEDS: VANCOMYCIN 750MG KIT 100 ML IV SCH (23:09)
[2025-03-22] VITALS (8 sets, daily range): BP systolic 126–148; BP diastolic 76–89; PULSE 83–97; RESP 15–20; TEMP 97.4–99.4; O2SAT 91–95
[2025-03-22 06:19] LABS: Hematocrit 30.2 % (36.0-46.0); Hemoglobin 9.9 g/dL (12.2-16.2); Mean Corpuscular Hemoglobin 27.0 pg (28.0-32.0); Mean Corpuscular Volume 82.0 fL (80.0-100.0); Nucleated Red Blood Cells % 0.1 %
[2025-03-22 06:31] LABS: Anion Gap 8 (5-15); BUN/Creatinine Ratio 24.2 (10.0-20.0); Blood Urea Nitrogen 16 mg/dL (9-23); Carbon Dioxide 26 mmol/L (20-31); Chloride 101 mmol/L (98-107); Potassium 3.7 mmol/L (3.5-5.1); Total Protein 6.2 g/dL (5.7-8.2)
[2025-03-22 06:33] LABS: Alanine Aminotransferase 141 U/L (7-40); Albumin 3.0 g/dL (3.2-4.8); Alkaline Phosphatase 217 U/L (46-116); Bilirubin, Total 1.4 mg/dL (0.2-1.0); Calcium 8.3 mg/dL (8.7-10.4); Glucose 136 mg/dL (74-106); Sodium 135 mmol/L (136-145)
--- NOTE | 2025-03-22 09:58 | DVHPN2 ---
Date of Progress Note Date of Progress Note Date of Progress Note: 03/22/25 Date of Admission Date of Admission Date of Admission: Date of Admission: Mar 20, 2025 at 23:22 Overnight Events Overnight events Overnight Events Patient tolerating pain with internal med pain management Family History Family History Family History: Patient reports no known family medical history. Allergies: Coded Allergies: Codeine (Verified Allergy, Unknown, 06/19/24) Sulfa Antibiotics (Verified Allergy, Unknown, 06/19/24) Home Meds Reported Medications Potassium Chloride (Klor-Con M10) 10 Meq Tab, 1 TAB PO DAILY, #30 TAB 5 Refills 03/21/25 Temazepam (Temazepam) 30 Mg Cap, 1 CAP PO QPM, #30 CAP 1 Refill 03/21/25 Lorazepam (Lorazepam) 1 Mg Tab, 1 TAB PO TID, #90 TAB 03/21/25 Aspirin (Aspir-81) 81 Mg Tab, 1 TAB PO DAILY, #30 TAB 5 Refills 03/21/25 Haloperidol (Haldol) 5 Mg Tb, 1 TAB PO QPM, #30 TAB 1 Refill 03/21/25 Gabapentin (Gabapentin) 300 Mg Cap, 1 CAP PO TID, #90 CAP 5 Refills 03/21/25 Hydroxyzine Hcl (Hydroxyzine Hcl) 25 Mg Tab, 1 TAB PO TID, #30 TAB 03/21/25 Furosemide (Furosemide) 20 Mg Tab, 1 TAB PO DAILY, #90 TAB 1 Refill 03/21/25 Trazodone Hcl (Trazodone Hcl) 100 Mg Tab, 1 TAB PO QPM, #30 TAB 1 Refill 03/21/25 Pantoprazole Sodium (PANTOPRAZOLE SODIUM) 40 Mg Inj, 40 MG PO, INJ 03/21/25 Oxycodone Hcl (OXYCODONE HCL) 5 Mg Tb, 5 MG PO, TAB 03/21/25 Current Medications Current Medications Medications (Trade) Dose Ordered Sig/[place] Route PRN Reason Start Time Stop Time Status Last Admin Enoxaparin Sodium (Lovenox) 40 mg DAILY SC 03/21/25 10:00 03/22/25 08:26 Vancomycin HCl 100 ml @ 100 mls/hr Q12H IV 03/21/25 23:00 03/21/25 23:09 Physical Examination General Examination: Last Vital sign Vital Signs Date Time Temp Pulse Resp B/P (MAP) Pulse Ox O2 Delivery O2 Flow Rate FiO2 03/22/25 09:00 99.4 89 16 126/84 (98) 94 99.4 03/21/25 20:00 Room Air* 0 21 General: General: No apparent distress, appears comfortable. Cooperative. Neurological Examination: Neurological Examination: Mental Status: Cranial Nerves: Motor Examination: Reflexes: Sensory: Coordination: Gait: Labs: Labs: Laboratory Tests Test 03/20/25 19:55 03/20/25 19:56 03/20/25 20:50 03/20/25 22:59 Range/Units POC Glucose 496 *H 546 *H 496 *H 70-106 mg/dl White Blood Count 4.0 L 4.4-10.8 10^3/uL Red Blood Count 3.72 L 4.0-5.20 10^6/uL Hemoglobin 10.0 L 12.2-16.2 g/dL Hematocrit 31.1 L 36.0-46.0 % Mean Corpuscular Volume 83.6 80.0-100.0 fL Mean Corpuscular Hemoglobin 27.0 L 28.0-32.0 pg Mean Corpuscular Hemoglobin Concent 32.3 32.0-36.0 g/dL Red Cell Distribution Width 15.0 H 11.8-14.3 % Platelet Count 130 L 140-450 10^3/uL Mean Platelet Volume 9.6 6.9-10.8 fL Neutrophils (%) (Auto) 63.6 37.0-80.0 % Lymphocytes (%) (Auto) 24.8 10.0-50.0 % Monocytes (%) (Auto) 10.9 0.0-12.0 % Eosinophils (%) (Auto) 0.2 0.0-7.0 % Basophils (%) (Auto) 0.5 0.0-2.0 % Neutrophils # (Auto) 2.5 1.6-8.6 10 ^3/uL Lymphocytes # (Auto) 1.0 0.4-5.4 10 ^3/uL Monocytes # (Auto) 0.4 0-1.3 10 ^3/uL Eosinophils # (Auto) 0 0-0.8 10 ^3/uL Basophils # (Auto) 0 0-0.2 10 ^3/uL Nucleated Red Blood Cells 0.2 % Prothrombin Time 12.3 H 9.3-11.8 sec Prothrombin Time INR 1.18 H 0.9-1.15 Activated Partial Thromboplast Time 29.5 24.5-34.5 SEC Sodium Level 134 L 136-145 mmol/L Potassium Level 4.1 3.5-5.1 mmol/L Chloride Level 100 98-107 mmol/L Carbon Dioxide Level 25 20-31 mmol/L Anion Gap 9 5-15 Blood Urea Nitrogen 18 9-23 mg/dL Creatinine 0.99 0.550-1.02 mg/dL Glomerular Filtration Rate Calc 61 >90 mL/min BUN/Creatinine Ratio 18.2 10.0-20.0 Serum Glucose 563 *H 74-106 mg/dL Hemoglobin A1c > 14.0 H <5.7 % A1C Lactic Acid Level 1.4 0.4-2.0 mmol/L Calcium Level 8.4 L 8.7-10.4 mg/dL Magnesium Level 1.4 L 1.6-2.6 mg/dL Total Bilirubin 1.4 H 0.2-1.0 mg/dL Aspartate Amino Transferase (AST) 99 H 13-40 U/L Alanine Aminotransferase (ALT) 190 H 7-40 U/L Alkaline Phosphatase 247 H 46-116 U/L Total Protein 6.6 5.7-8.2 g/dL Albumin 3.3 3.2-4.8 g/dL Vitamin B12 Level 2203 H 211-911 pg/mL Vitamin D 25-Hydroxy 33.3 30.0-100 ng/mL Test 03/21/25 01:09 03/21/25 01:20 03/21/25 01:40 03/21/25 03:55 Range/Units POC Glucose 475 *H 323 H 70-106 mg/dl Urine Color Dark-brown Yellow Urine Clarity Ex.turbid Clear Urine pH 5.5 5.0-9.0 Urine Specific [place] 1.025 1.001-1.035 Urine Protein 2+ H Negative Urine Ketones Negative Negative Urine Blood 2+ H Negative /uL Urine Nitrite Negative Negative Urine Bilirubin Negative Negative Urine Urobilinogen Normal Negative mg/dL Urine Leukocyte Esterase 3+ Negative /uL Urine RBC 40 0 - 4 /hpf Urine WBC Clumps Present None Seen /hpf Urine Microscopic WBC 1912 H 0-5 /HPF Urine Squamous Epithelial Cells None seen <5 /hpf Urine Bacteria Mod H None Seen /hpf Urine Glucose 2+ H Normal mg/dL Urine Opiates Screen Neg NEGATIVE Urine Fentanyl Screen Neg NEGATIVE Urine Barbiturates Screen Neg NEGATIVE Urine Phencyclidine Screen Neg NEGATIVE Urine Amphetamines Screen Neg NEGATIVE Urine Benzodiazepines Screen Neg NEGATIVE Urine Cocaine Screen Neg NEGATIVE Urine Cannabinoids Screen Neg NEGATIVE Blood Gas Specimen Type Arterial Blood Gas Sample Site Right radial Blood Gas Patient Temperature 37.0 Arterial Blood Date Drawn [id number] Arterial Blood pH 7.422 7.350-7.450 Arterial Blood Partial Pressure CO2 35.9 32.0-45.0 mmHg Arterial Blood Partial Pressure O2 67.3 L 83.0-108.0 mmHg Arterial Blood HCO3 22.9 21.0-28.0 mmol/L Arterial Blood Oxygen Saturation 94.0 94.0-98.0 % Arterial Blood Base Excess -1.2 -2.0-3.0 mmol/L Arterial Blood Oxyhemoglobin 92.4 L 94.0-98.0 % Arterial Blood Carboxyhemoglobin 1.3 0.5-1.5 % Arterial Blood Methemoglobin 0.4 0.0-1.5 % Azam Test Yes Blood Gas Total Hemoglobin 11.20 L 12.0-16.0 g/dL Blood Gas Modality Room air FiO2 % 21.0 Test 03/21/25 05:39 03/21/25 08:39 03/21/25 12:40 03/21/25 12:56 Range/Units White Blood Count 5.6 # 4.4-10.8 10^3/uL Red Blood Count 3.67 L 4.0-5.20 10^6/uL Hemoglobin 9.9 L 12.2-16.2 g/dL Hematocrit 30.0 L 36.0-46.0 % Mean Corpuscular Volume 81.9 80.0-100.0 fL Mean Corpuscular Hemoglobin 27.0 L 28.0-32.0 pg Mean Corpuscular Hemoglobin Concent 33.0 32.0-36.0 g/dL Red Cell Distribution Width 15.0 H 11.8-14.3 % Platelet Count 155 140-450 10^3/uL Mean Platelet Volume 9.8 6.9-10.8 fL Neutrophils (%) (Auto) 62.4 37.0-80.0 % Lymphocytes (%) (Auto) 27.5 10.0-50.0 % Monocytes (%) (Auto) 9.5 0.0-12.0 % Eosinophils (%) (Auto) 0.3 0.0-7.0 % Basophils (%) (Auto) 0.3 0.0-2.0 % Neutrophils # (Auto) 3.5 1.6-8.6 10 ^3/uL Lymphocytes # (Auto) 1.5 0.4-5.4 10 ^3/uL Monocytes # (Auto) 0.5 0-1.3 10 ^3/uL Eosinophils # (Auto) 0 0-0.8 10 ^3/uL Basophils # (Auto) 0 0-0.2 10 ^3/uL Nucleated Red Blood Cells 0.1 % Sodium Level 137 136-145 mmol/L Potassium Level 3.5 3.5-5.1 mmol/L Chloride Level 104 98-107 mmol/L Carbon Dioxide Level 22 20-31 mmol/L Anion Gap 11 5-15 Blood Urea Nitrogen 15 9-23 mg/dL Creatinine 0.73 0.550-1.02 mg/dL Glomerular Filtration Rate Calc 87 >90 mL/min BUN/Creatinine Ratio 20.5 H 10.0-20.0 Serum Glucose 206 H 74-106 mg/dL Calcium Level 8.6 L 8.7-10.4 mg/dL Phosphorus Level 2.6 2.4-5.1 mg/dL Magnesium Level 2.0 1.6-2.6 mg/dL Total Bilirubin 1.3 H 0.2-1.0 mg/dL Aspartate Amino Transferase (AST) 89 H 13-40 U/L Alanine Aminotransferase (ALT) 174 H 7-40 U/L Alkaline Phosphatase 229 H 46-116 U/L Total Protein 6.7 5.7-8.2 g/dL Albumin 3.3 3.2-4.8 g/dL Beta-Hydroxybutyric Acid 0.070 < 0.4 mmol/L Thyroid Stimulating Hormone (TSH) 0.44 L 0.55-4.78 uIU/mL POC Glucose 124 H 221 H 70-106 mg/dl Influenza Type A Antigen Negative Negative Influenza Type B Antigen Negative Negative SARS-CoV-2 Antigen (Rapid) Negative NEGATIVE Test 03/21/25 16:31 03/21/25 17:47 03/21/25 20:03 03/22/25 00:23 Range/Units Hepatitis A IgM Antibody Pending Hepatitis B Surface Antigen Pending Hepatitis B Core IgM Antibody Pending Hepatitis C Antibody Pending POC Glucose 156 H 223 H 166 H 70-106 mg/dl Test 03/22/25 04:16 03/22/25 05:52 03/22/25 08:17 Range/Units POC Glucose 142 H 153 H 70-106 mg/dl White Blood Count 6.3 4.4-10.8 10^3/uL Red Blood Count 3.68 L 4.0-5.20 10^6/uL Hemoglobin 9.9 L 12.2-16.2 g/dL Hematocrit 30.2 L 36.0-46.0 % Mean Corpuscular Volume 82.0 80.0-100.0 fL Mean Corpuscular Hemoglobin 27.0 L 28.0-32.0 pg Mean Corpuscular Hemoglobin Concent 33.0 32.0-36.0 g/dL Red Cell Distribution Width 15.2 H 11.8-14.3 % Platelet Count 156 140-450 10^3/uL Mean Platelet Volume 9.3 6.9-10.8 fL Neutrophils (%) (Auto) 51.9 37.0-80.0 % Lymphocytes (%) (Auto) 37.2 10.0-50.0 % Monocytes (%) (Auto) 10.1 0.0-12.0 % Eosinophils (%) (Auto) 0.4 0.0-7.0 % Basophils (%) (Auto) 0.4 0.0-2.0 % Neutrophils # (Auto) 3.3 1.6-8.6 10 ^3/uL Lymphocytes # (Auto) 2.4 0.4-5.4 10 ^3/uL Monocytes # (Auto) 0.6 0-1.3 10 ^3/uL Eosinophils # (Auto) 0 0-0.8 10 ^3/uL Basophils # (Auto) 0 0-0.2 10 ^3/uL Nucleated Red Blood Cells 0.1 % Sodium Level 135 L 136-145 mmol/L Potassium Level 3.7 3.5-5.1 mmol/L Chloride Level 101 98-107 mmol/L Carbon Dioxide Level 26 20-31 mmol/L Anion Gap 8 5-15 Blood Urea Nitrogen 16 9-23 mg/dL Creatinine 0.66 0.550-1.02 mg/dL Glomerular Filtration Rate Calc 93 >90 mL/min BUN/Creatinine Ratio 24.2 H 10.0-20.0 Serum Glucose 136 H 74-106 mg/dL Calcium Level 8.3 L 8.7-10.4 mg/dL Total Bilirubin 1.4 H 0.2-1.0 mg/dL Aspartate Amino Transferase (AST) 80 H 13-40 U/L Alanine Aminotransferase (ALT) 141 H 7-40 U/L Alkaline Phosphatase 217 H 46-116 U/L Ammonia 25 11-32 umol/L Total Protein 6.2 5.7-8.2 g/dL Albumin 3.0 L 3.2-4.8 g/dL Assessment/Plan Assessment/Plan Assessment and Plan:Mariel Bettencourt is a 70 year old female with right femur subtrochanteric fracture, Was in Hospice for endstage , stage 4 lung CA, 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 I spoke with daughter this AM, she understands risks benefits of surgery and agrees with conservative, non-surgical plan. She has my cell phone number as has been encourage to call me with any questions/concerns. Plan arrange for transfer to Hospice F/U ortho prn Plan discussed with: Daughter CLAIRE PEREZ MD Mar 22, 2025 09:58
[2025-03-22 11:05] LABS: Hepatitis B Surface Antigen Negative (Negative)
[2025-03-22 11:06] LABS: Hepatitis C Antibody Positive (Negative)
--- NOTE | 2025-03-22 15:33 | DVHPN2 ---
Subjective Patient reporting right hip pain Reviewed: Care Plan, H&P, Labs, Medications Changes from previous H/P or p: No Changes General: Per HPI Objective Vitals Vital Signs Date Time Temp Pulse Resp B/P (MAP) Pulse Ox O2 Delivery O2 Flow Rate FiO2 03/22/25 14:40 90 16 135/81 03/22/25 13:00 98.6 91 98.6 03/22/25 08:00 Room Air* 0 21 Intake/Output Intake and Output 03/22/25 07:00 Intake Total 1710 ml Output Total 650 ml Balance 1060 ml Intake Oral 600 ml IV Total 1110 ml Output Urine Total 650 ml General Appearance: Alert, Oriented X3, Cooperative, moderate distress HEENT: Atraumatic, PERRLA Cardiovascular: Normal S1, Normal S2 Abdomen: Normal bowel sounds, Soft, No tenderness Musculoskeletal: Normal sensory function, Normal motor function Skin: Dry, Intact Psych/Mental Status: Mental status NL, Mood NL Medications Current Medications Medications Dose Ordered Sig/[place] Route Start Time Stop Time Status Last Admin Dose Admin Sodium Chloride 1,000 ml @ 60 mls/hr [id number] IV 03/20/25 23:30 03/21/25 07:30 60 MLS/HR Acetaminophen 325 mg Q4HP PRN PO 03/20/25 23:30 03/22/25 12:39 325 MG Morphine Sulfate 2 mg Q4HPRN PRN IV 03/20/25 23:30 03/22/25 14:40 2 MG Enoxaparin Sodium 40 mg DAILY SC 03/21/25 10:00 03/22/25 08:26 40 MG Diagnostic Test (Pha) 1 strip IQ4HR 03/21/25 00:00 03/22/25 12:27 1 STRIP Insulin Human Regular IQ4HR SC 03/21/25 00:00 03/22/25 12:33 2 UNITS Dextrose 50 ml UD PRN IV 03/20/25 23:30 Vancomycin HCl 0 ml @ 0 mls/hr UD IV 03/20/25 23:30 Vancomycin HCl 100 ml @ 100 mls/hr Q12H IV 03/21/25 23:00 03/22/25 11:28 100 MLS/HR Ertapenem 1 gm/ Sodium Chloride 50 ml @ 100 mls/hr DAILY IV 03/23/25 10:00 UNV Laboratory Results Laboratory Tests 03/22/25 05:52 Chemistry Test 03/22/25 05:52 Albumin 3.0 g/dL (3.2-4.8) L Calcium Level 8.3 mg/dL (8.7-10.4) L Total Protein 6.2 g/dL (5.7-8.2) LFT Test 03/22/25 05:52 Alanine Aminotransferase (ALT) 141 U/L (7-40) H Alkaline Phosphatase 217 U/L (46-116) H Aspartate Amino Transferase (AST) 80 U/L (13-40) H Total Bilirubin 1.4 mg/dL (0.2-1.0) H Urinalysis Test 03/21/25 01:20 Urine Color Dark-brown (Yellow) Urine Clarity Ex.turbid (Clear) Urine pH 5.5 (5.0-9.0) Urine Specific [place] 1.025 (1.001-1.035) Urine Protein 2+ (Negative) H Urine Ketones Negative (Negative) Urine Blood 2+ /uL (Negative) H Urine Nitrite Negative (Negative) Urine Bilirubin Negative (Negative) Urine Urobilinogen Normal mg/dL (Negative) Urine Leukocyte Esterase 3+ /uL (Negative) Urine RBC 40 /hpf (0 - 4) Urine WBC Clumps Present /hpf (None Seen) Urine Microscopic WBC 1912 /HPF (0-5) H Urine Squamous Epithelial Cells None seen /hpf (<5) Urine Bacteria Mod /hpf (None Seen) H Urine Glucose 2+ mg/dL (Normal) H Microbiology Microbiology Date/Time Source Procedure Growth Status 03/21/25 01:20 Voided Urine Urine Culture - Preliminary Resulted 03/20/25 20:58 Blood Blood Culture - Preliminary NO GROWTH AFTER 24 HOURS OF INCUBATION. Resulted Labs and/or images reviewed: Labs reviewed by me, Image(s) reviewed by me Assessment/Plan Assessment/Plan Impression: -Right femoral neck fracture -complicated cystitis -rule out sepsis -cirrhosis of the liver -? Metastatic lung disease Plan: -orthopedic surgery consultation: No surgical intervention at this time -change antibiotic therapy: Gram-negative rods: Change Zosyn to Invanz, continue vancomycin -monitor LFTs -pain management, stop Browning, changed to Percocet, continue IV morphine for breakthrough pain -PUD, DVT prophylaxis -repeat labs in a.m. Total time spent with patient discussing and formulating plan of care: 35 minutes. This medical document was created using an electronic medical record system with [employer] dictation system. Although this document has been carefully reviewed, there may still be some phonetic and typographical errors. These areas are purely typographical due to imperfections of the software programs, and do not reflect any compromise in the patient's medical care. Plan discussed with: Patient, Other (RN) My Orders Orders - ARLINE BARRON NP Procedure Category Date Status Time Ertapenem Sod Inj PHA 03/22/25 In Process (Invanz) 15:30 Date of Service: Mar 22, 2025 Billing Provider: ARLINE BARRON NP Common Visit Codes: [id number] INP/OBS CARE(HIGH) ARLINE BARRON NP Mar 22, 2025 15:33
[2025-03-22] MEDS: ERTAPENEM SOD INJ 1 GM in SODIUM CHL 0.9% 50 ML IV SCH (16:36)
[2025-03-22] MEDS: KETOROLAC TROMETH 30 MG/ML 1ML VIAL IV ONE (22:29)
[2025-03-23] VITALS (7 sets, daily range): BP systolic 116–131; BP diastolic 72–80; PULSE 86–92; RESP 15–20; TEMP 97.7–99.3; O2SAT 95–99
[2025-03-23 07:11] LABS: Hematocrit 31.3 % (36.0-46.0); Hemoglobin 10.2 g/dL (12.2-16.2); Mean Corpuscular Hemoglobin 26.9 pg (28.0-32.0); Mean Corpuscular Volume 82.5 fL (80.0-100.0); Nucleated Red Blood Cells % 0.1 %
--- NOTE | 2025-03-23 17:22 | DVHPN2 ---
Subjective ITCHING Reviewed: Care Plan, H&P, Labs, Medications, Previous Orders, Radiology Changes from previous H/P or p: No Changes General: Per HPI Objective Vitals Vital Signs Date Time Temp Pulse Resp B/P (MAP) Pulse Ox O2 Delivery O2 Flow Rate FiO2 03/23/25 14:28 90 18 115/72 03/23/25 09:00 99.0 97 99.0 03/23/25 08:00 Room Air* 0 21 Intake/Output Intake and Output 03/23/25 07:00 Intake Total 500 ml Output Total 550 ml Balance -50 ml Intake Oral 400 ml IV Total 100 ml Output Urine Total 550 ml # Bowel Movements 3 General Appearance: Alert, Oriented X3, Cooperative HEENT: Atraumatic Lungs: Clear to auscultation Cardiovascular: Regular rate Abdomen: Normal bowel sounds, Soft, No tenderness Medications Current Medications Medications Dose Ordered Sig/[place] Route Start Time Stop Time Status Last Admin Dose Admin Sodium Chloride 1,000 ml @ 60 mls/hr [id number] IV 03/20/25 23:30 03/23/25 09:28 60 MLS/HR Acetaminophen 325 mg Q4HP PRN PO 03/20/25 23:30 03/22/25 12:39 325 MG Morphine Sulfate 2 mg Q4HPRN PRN IV 03/20/25 23:30 03/23/25 14:28 2 MG Enoxaparin Sodium 40 mg DAILY SC 03/21/25 10:00 03/23/25 09:19 40 MG Diagnostic Test (Pha) 1 strip IQ4HR 03/21/25 00:00 03/23/25 16:44 1 STRIP Insulin Human Regular IQ4HR SC 03/21/25 00:00 03/23/25 16:46 3 UNITS Dextrose 50 ml UD PRN IV 03/20/25 23:30 Ertapenem 1 gm/ Sodium Chloride 50 ml @ 100 mls/hr DAILY IV 03/22/25 15:30 03/23/25 09:29 100 MLS/HR Vancomycin HCl 250 ml @ 250 mls/hr Q12H IV 03/23/25 23:00 Laboratory Results Laboratory Tests 03/22/25 05:52 03/23/25 05:53 Urinalysis Test 03/21/25 01:20 Urine Color Dark-brown (Yellow) Urine Clarity Ex.turbid (Clear) Urine pH 5.5 (5.0-9.0) Urine Specific [place] 1.025 (1.001-1.035) Urine Protein 2+ (Negative) H Urine Ketones Negative (Negative) Urine Blood 2+ /uL (Negative) H Urine Nitrite Negative (Negative) Urine Bilirubin Negative (Negative) Urine Urobilinogen Normal mg/dL (Negative) Urine Leukocyte Esterase 3+ /uL (Negative) Urine RBC 40 /hpf (0 - 4) Urine WBC Clumps Present /hpf (None Seen) Urine Microscopic WBC 1912 /HPF (0-5) H Urine Squamous Epithelial Cells None seen /hpf (<5) Urine Bacteria Mod /hpf (None Seen) H Urine Glucose 2+ mg/dL (Normal) H Microbiology Microbiology Date/Time Source Procedure Growth Status 03/21/25 12:00 Nose MRSA Screen - Final Complete 03/21/25 01:20 Voided Urine Urine Culture - Final Escherichia coli Klebsiella pneumoniae Complete 03/20/25 20:58 Blood Blood Culture - Preliminary NO GROWTH AFTER 48 HOURS OF INCUBATION. Resulted Assessment/Plan Assessment/Plan Right hip fracture UTI and cystitis /E coli and Klebsiella pneumoniae Liver cirrhosis Lung cancer with metastasis Diverticulosis Cholelithiasis Dementia Diabetes COPD Hepatitis-C antibody Plan: IV antibiotics. DC vanco. Benadryl p.r.n.. Further plan per orders Plan discussed with: Patient, Other My Orders Orders - JELANI SHEFFIELD MD Procedure Category Date Status Time Hydroxyzine Oral PHA 03/23/25 Transmitted (Vistaril Oral) 17:30 Date of Service: Mar 23, 2025 Billing Provider: JELANI SHEFFIELD MD Common Visit Codes: [id number] INP/OBS CARE(HIGH) JELANI SHEFFIELD MD Mar 23, 2025 17:22
[2025-03-23] MEDS: hydrOXYzine HCL 10 MG TAB PO PRN (18:47)
[2025-03-23] MEDS ORDERED: VANCOMYCIN 1GM/250ML KIT 250 ML IV SCH (23:00)
[2025-03-24] VITALS (8 sets, daily range): BP systolic 112–130; BP diastolic 71–77; PULSE 80–92; RESP 16–20; TEMP 97.9–98.9; O2SAT 94–97
--- NOTE | 2025-03-24 17:19 | DVHPN2 ---
Subjective Same Reviewed: Care Plan, H&P, Labs, Medications, Previous Orders, Radiology Changes from previous H/P or p: No Changes General: Per HPI Objective Vitals Vital Signs Date Time Temp Pulse Resp B/P (MAP) Pulse Ox O2 Delivery O2 Flow Rate FiO2 03/24/25 16:42 97.9 87 18 130/77 (94) 94 97.9 03/24/25 08:00 Room Air* 0 21 Intake/Output Intake and Output 03/24/25 07:00 Intake Total 1990 ml Output Total 400 ml Balance 1590 ml Intake Oral 1140 ml IV Total 850 ml Output Urine Total 400 ml # Bowel Movements 4 General Appearance: Alert, Oriented X3, Cooperative HEENT: Atraumatic Lungs: Clear to auscultation Cardiovascular: Regular rate Abdomen: Normal bowel sounds, Soft, No tenderness Medications Current Medications Medications Dose Ordered Sig/[place] Route Start Time Stop Time Status Last Admin Dose Admin Sodium Chloride 1,000 ml @ 60 mls/hr [id number] IV 03/20/25 23:30 03/24/25 09:36 60 MLS/HR Acetaminophen 325 mg Q4HP PRN PO 03/20/25 23:30 03/24/25 02:24 325 MG Morphine Sulfate 2 mg Q4HPRN PRN IV 03/20/25 23:30 03/24/25 10:13 2 MG Enoxaparin Sodium 40 mg DAILY SC 03/21/25 10:00 03/24/25 09:32 40 MG Diagnostic Test (Pha) 1 strip IQ4HR 03/21/25 00:00 03/24/25 16:39 1 STRIP Insulin Human Regular IQ4HR SC 03/21/25 00:00 03/24/25 16:40 3 UNITS Dextrose 50 ml UD PRN IV 03/20/25 23:30 Ertapenem 1 gm/ Sodium Chloride 50 ml @ 100 mls/hr DAILY IV 03/22/25 15:30 03/24/25 09:33 100 MLS/HR Hydroxyzine HCl 10 mg Q6HP PRN PO 03/23/25 17:30 03/24/25 10:11 10 MG Laboratory Results Laboratory Tests 03/22/25 05:52 03/23/25 05:53 Urinalysis Test 03/21/25 01:20 Urine Color Dark-brown (Yellow) Urine Clarity Ex.turbid (Clear) Urine pH 5.5 (5.0-9.0) Urine Specific [place] 1.025 (1.001-1.035) Urine Protein 2+ (Negative) H Urine Ketones Negative (Negative) Urine Blood 2+ /uL (Negative) H Urine Nitrite Negative (Negative) Urine Bilirubin Negative (Negative) Urine Urobilinogen Normal mg/dL (Negative) Urine Leukocyte Esterase 3+ /uL (Negative) Urine RBC 40 /hpf (0 - 4) Urine WBC Clumps Present /hpf (None Seen) Urine Microscopic WBC 1912 /HPF (0-5) H Urine Squamous Epithelial Cells None seen /hpf (<5) Urine Bacteria Mod /hpf (None Seen) H Urine Glucose 2+ mg/dL (Normal) H Microbiology Microbiology Date/Time Source Procedure Growth Status 03/21/25 12:00 Nose MRSA Screen - Final Complete 03/21/25 01:20 Voided Urine Urine Culture - Final Escherichia coli Klebsiella pneumoniae Complete 03/20/25 20:58 Blood Blood Culture - Preliminary NO GROWTH AFTER 72 HOURS OF INCUBATION. Resulted Assessment/Plan Assessment/Plan Right hip fracture UTI and cystitis /E coli and Klebsiella pneumoniae Liver cirrhosis Lung cancer with metastasis Diverticulosis Cholelithiasis Dementia Diabetes COPD Hepatitis-C antibody Plan: Continue current plan of care. Plan discussed with: Patient, Other (Nursing) My Orders Orders - JELANI SHEFFIELD MD Procedure Category Date Status Time Hydroxyzine Oral PHA 03/23/25 In Process (Vistaril Oral) 17:30 Date of Service: Mar 24, 2025 Billing Provider: JELANI SHEFFIELD MD Common Visit Codes: [id number] INP/OBS CARE(MOD) JELANI SHEFFIELD MD Mar 24, 2025 17:19
[2025-03-25] VITALS (8 sets, daily range): BP systolic 126–147; BP diastolic 78–88; PULSE 56–101; RESP 16–19; TEMP 97.2–98.4; O2SAT 94–98
[2025-03-25] MEDS: MORPHINE SULFATE 4 MG/ML SYR/VIAL IV PRN (00:18)
--- NOTE | 2025-03-25 07:51 | ECG ---
[facility] Test Date: 2025-03-22 Test Time: 11:51:14 Pat Name: GEMA MONZON Department: Room: 0276T Gender: F [employer] Operator: co : 1955 Requested By: TERESA CONNORS Order Number: [id number] Reading MD: Darin Bullard Measurements Intervals [place] Rate: 100 P: 80 SD: 142 QRS: -28 QRSD: 78 T: 80 QT: 364 QTc: 470 Interpretive Statements Sinus tachycardia with irregular rate Borderline left axis deviation Anterior infarct, age indeterminate Electronically Signed On 03-26-2025 21:41:39 PDT by Darin Bullard Please click the below link to view image of tracing.
--- NOTE | 2025-03-25 12:35 | DVHPN2 ---
Progress Note Date Seen: Mar 25, 2025 Medical Necessity Reason Pt with a Central, PICC or Fol: Yes The following are medically ne: Razo Catheter Reason for razo catheter: Strict I&O Subjective Patient reports: No new complaints Review of Systems: HEENT:Normal, CVS:Normal, RESPIRATORY:Normal, GI:Normal, :Normal, MSK:Normal, NEURO:Normal Objective vital signs Vital Sign Date Time Temp Pulse Resp B/P (MAP) Pulse Ox O2 Delivery O2 Flow Rate FiO2 03/25/25 09:49 101 17 128/80 03/25/25 09:00 98.4 94 98.4 03/24/25 20:00 Room Air* 0 21 Total Intake and Output 03/24/25 03/24/25 03/25/25 15:00 23:00 07:00 Intake Total 647 ml 1720 ml 150 ml Output Total 300 ml 300 ml Balance 647 ml 1420 ml -150 ml medications Current Medications Medications Dose Ordered Sig/[place] Route Start Time Stop Time Status Last Admin Dose Admin Sodium Chloride 1,000 ml @ 60 mls/hr [id number] IV 03/20/25 23:30 03/25/25 04:43 60 MLS/HR Acetaminophen 325 mg Q4HP PRN PO 03/20/25 23:30 03/24/25 02:24 325 MG Enoxaparin Sodium 40 mg DAILY SC 03/21/25 10:00 03/25/25 11:01 40 MG Diagnostic Test (Pha) 1 strip IQ4HR 03/21/25 00:00 03/25/25 12:03 1 STRIP Insulin Human Regular IQ4HR SC 03/21/25 00:00 03/25/25 12:02 3 UNITS Dextrose 50 ml UD PRN IV 03/20/25 23:30 Ertapenem 1 gm/ Sodium Chloride 50 ml @ 100 mls/hr DAILY IV 03/22/25 15:30 03/25/25 11:01 100 MLS/HR Hydroxyzine HCl 10 mg Q6HP PRN PO 03/23/25 17:30 03/25/25 11:59 10 MG Morphine Sulfate 2 mg Q4HPRN PRN IV 03/24/25 22:00 03/25/25 09:19 2 MG Examination: GENERAL:Normal, HEENT:Normal, NECK:Normal, LUNGS:Normal, CVS:Normal, ABDOMEN:Normal, MSK:Normal, SKIN:Normal, NEURO:Normal, :Normal laboratory and microbiology Laboratory Tests 03/23/25 05:53 03/22/25 05:52 Test 03/22/25 05:52 Range/Units Serum Glucose 136 H 74-106 mg/dL Microbiology Date/Time Source Procedure Growth Status 03/21/25 12:00 Nose MRSA Screen - Final Complete 03/21/25 01:20 Voided Urine Urine Culture - Final Escherichia coli Klebsiella pneumoniae Complete 03/20/25 20:58 Blood Blood Culture - Preliminary NO GROWTH AFTER 72 HOURS OF INCUBATION. Resulted Problem List/Assessment/Plan Problem List/Assessment/Plan #1 right hip fracture: ? conservative treatment #2 sepsis with uti: iv levaquin #3 liver cirrhosis with hep C #4 uncontrolled dm: ssi #5 encephalopathy- metabolic #6 anemia #7 hep c #8 ?mets lung cancer advance care planning- dnr- time spent 19 mins Plan discussed with: Patient, Daughter Dietary Evaluation Review Recommendations by RD: Protein Supplementation Comments: 1) Add 80g hepatic restriction to 60g CCHO diet 2) Initiate NutriHep qd - encourageo optimal PO intake 3) Follow-up with cardiology, hepatology, and oncology 4) Continue to monitor I&O, labs, and skin integrity Expected Outcomes/Goals: 1) appetite and labs to improve 2) wounds to improve 3) f/u in 3-5 days Date of Service: Mar 25, 2025 Billing Provider: REMA MIDDLETON MD Common Visit Codes: [id number] INP/OBS CARE(HIGH) REMA MIDDLETON MD Mar 25, 2025 12:35
[2025-03-25] MEDS: HYDROcodone-ACET 5/325MG TAB PO PRN (15:47)
[2025-03-26] VITALS (8 sets, daily range): BP systolic 104–126; BP diastolic 70–84; PULSE 81–96; RESP 16–20; TEMP 97.4–98.3; O2SAT 92–98
[2025-03-26 06:08] LABS: Hematocrit 28.0 % (36.0-46.0); Hemoglobin 9.4 g/dL (12.2-16.2); Mean Corpuscular Hemoglobin 27.5 pg (28.0-32.0); Mean Corpuscular Volume 82.1 fL (80.0-100.0); Nucleated Red Blood Cells % 0.1 %
[2025-03-26 06:15] LABS: Anion Gap 9 (5-15); BUN/Creatinine Ratio 24.0 (10.0-20.0); Bilirubin, Total 1.0 mg/dL (0.2-1.0); Blood Urea Nitrogen 12 mg/dL (9-23); Carbon Dioxide 24 mmol/L (20-31); Chloride 103 mmol/L (98-107); Potassium 4.2 mmol/L (3.5-5.1)
[2025-03-26 06:21] LABS: Alanine Aminotransferase 86 U/L (7-40); Albumin 2.7 g/dL (3.2-4.8); Alkaline Phosphatase 247 U/L (46-116); Calcium 7.7 mg/dL (8.7-10.4); Glucose 132 mg/dL (74-106); Sodium 136 mmol/L (136-145); Total Protein 5.7 g/dL (5.7-8.2)
--- NOTE | 2025-03-26 11:37 | DVHPN2 ---
Progress Note Date Seen: Mar 26, 2025 Medical Necessity Reason Pt with a Central, PICC or Fol: Yes The following are medically ne: Razo Catheter Reason for razo catheter: Strict I&O Subjective Patient reports: No new complaints Review of Systems: HEENT:Normal, CVS:Normal, RESPIRATORY:Normal, GI:Normal, :Normal, MSK:Normal, NEURO:Normal Objective vital signs Vital Sign Date Time Temp Pulse Resp B/P (MAP) Pulse Ox O2 Delivery O2 Flow Rate FiO2 03/26/25 10:56 83 18 116/74 03/26/25 08:53 98.0 97 98.0 03/25/25 20:00 Room Air* 0 21 Total Intake and Output 03/25/25 03/25/25 03/26/25 15:00 23:00 07:00 Intake Total 234 ml 300 ml 700 ml Output Total 275 ml 280 ml Balance 234 ml 25 ml 420 ml medications Current Medications Medications Dose Ordered Sig/[place] Route Start Time Stop Time Status Last Admin Dose Admin Sodium Chloride 1,000 ml @ 60 mls/hr [id number] IV 03/20/25 23:30 03/25/25 20:27 60 MLS/HR Acetaminophen 325 mg Q4HP PRN PO 03/20/25 23:30 03/24/25 02:24 325 MG Enoxaparin Sodium 40 mg DAILY SC 03/21/25 10:00 03/26/25 10:15 40 MG Diagnostic Test (Pha) 1 strip IQ4HR 03/21/25 00:00 03/26/25 08:10 1 STRIP Insulin Human Regular IQ4HR SC 03/21/25 00:00 03/26/25 08:17 2 UNITS Dextrose 50 ml UD PRN IV 03/20/25 23:30 Hydroxyzine HCl 10 mg Q6HP PRN PO 03/23/25 17:30 03/26/25 01:23 10 MG Morphine Sulfate 2 mg Q4HPRN PRN IV 03/24/25 22:00 03/26/25 10:56 2 MG Levofloxacin/ Dextrose 100 ml @ 100 mls/hr DAILY IV 03/26/25 10:00 03/26/25 10:14 100 MLS/HR Acetaminophen/ Hydrocodone Bitart 1 tab Q6HPRN PRN PO 03/25/25 12:30 03/25/25 15:47 1 TAB Examination: GENERAL:Normal, HEENT:Normal, NECK:Normal, LUNGS:Normal, CVS:Normal, ABDOMEN:Normal, MSK:Normal, SKIN:Normal, NEURO:Normal, :Normal laboratory and microbiology Laboratory Tests 03/26/25 05:11 Test 03/26/25 05:11 Range/Units Serum Glucose 132 H 74-106 mg/dL Microbiology Date/Time Source Procedure Growth Status 03/21/25 12:00 Nose MRSA Screen - Final Complete 03/21/25 01:20 Voided Urine Urine Culture - Final Escherichia coli Klebsiella pneumoniae Complete 03/20/25 20:58 Blood Blood Culture - Final NO GROWTH AFTER 5 DAYS OF INCUBATION. Complete Problem List/Assessment/Plan Problem List/Assessment/Plan #1 right hip fracture: ? conservative treatment ?surg- will clarify with family/ortho #2 sepsis with uti: iv levaquin #3 liver cirrhosis with hep C #4 uncontrolled dm: ssi #5 encephalopathy- metabolic #6 anemia #7 hep c #8 ?mets lung cancer advance care planning- dnr- time spent 19 mins Plan discussed with: Patient My Orders My Orders Orders - REMA MIDDLETON MD Procedure Category Date Status Time Levofloxacin 500mg PHA 03/26/25 In Process (Levaquin 500mg/ 100m 10:00 Hydrocodone-Acet PHA 03/25/25 In Process 5/325mg Tab ([place] 12:30 Dietary Evaluation Review Recommendations by RD: Protein Supplementation Comments: 1) Add 80g hepatic restriction to 60g CCHO diet 2) Initiate NutriHep qd - encourageo optimal PO intake 3) Follow-up with cardiology, hepatology, and oncology 4) Continue to monitor I&O, labs, and skin integrity Expected Outcomes/Goals: 1) appetite and labs to improve 2) wounds to improve 3) f/u in 3-5 days Date of Service: Mar 26, 2025 Billing Provider: REMA MIDDLETON MD Common Visit Codes: [id number] INP/OBS CARE(HIGH) REMA MIDDLETON MD Mar 26, 2025 11:37
[2025-03-27] VITALS (7 sets, daily range): BP systolic 116–136; BP diastolic 71–88; PULSE 59–92; RESP 16–18; TEMP 97.4–97.7; O2SAT 95–99
--- NOTE | 2025-03-27 12:05 | DVHPN2 ---
Progress Note Date Seen: Mar 27, 2025 Medical Necessity Reason Pt with a Central, PICC or Fol: Yes The following are medically ne: Razo Catheter Reason for razo catheter: Strict I&O Subjective Patient reports: No new complaints Review of Systems: HEENT:Normal, CVS:Normal, RESPIRATORY:Normal, GI:Normal, :Normal, MSK:Normal, NEURO:Normal Objective vital signs Vital Sign Date Time Temp Pulse Resp B/P (MAP) Pulse Ox O2 Delivery O2 Flow Rate FiO2 03/27/25 10:37 88 17 133/88 03/27/25 08:49 97.5 99 97.5 03/27/25 08:14 Room Air* 0 21 Total Intake and Output 03/26/25 03/26/25 03/27/25 15:00 23:00 07:00 Intake Total 620 ml 105 ml Output Total 450 ml 350 ml Balance 170 ml -245 ml medications Current Medications Medications Dose Ordered Sig/[place] Route Start Time Stop Time Status Last Admin Dose Admin Sodium Chloride 1,000 ml @ 60 mls/hr [id number] IV 03/20/25 23:30 03/26/25 14:00 60 MLS/HR Acetaminophen 325 mg Q4HP PRN PO 03/20/25 23:30 03/24/25 02:24 325 MG Enoxaparin Sodium 40 mg DAILY SC 03/21/25 10:00 03/27/25 10:00 40 MG Diagnostic Test (Pha) 1 strip IQ4HR 03/21/25 00:00 03/27/25 10:02 1 STRIP Insulin Human Regular IQ4HR SC 03/21/25 00:00 03/27/25 10:02 3 UNITS Dextrose 50 ml UD PRN IV 03/20/25 23:30 Hydroxyzine HCl 10 mg Q6HP PRN PO 03/23/25 17:30 03/27/25 10:00 10 MG Morphine Sulfate 2 mg Q4HPRN PRN IV 03/24/25 22:00 03/27/25 10:37 2 MG Levofloxacin/ Dextrose 100 ml @ 100 mls/hr DAILY IV 03/26/25 10:00 03/27/25 10:00 100 MLS/HR Acetaminophen/ Hydrocodone Bitart 1 tab Q6HPRN PRN PO 03/25/25 12:30 03/27/25 06:11 1 TAB Examination: GENERAL:Normal, HEENT:Normal, NECK:Normal, LUNGS:Normal, CVS:Normal, ABDOMEN:Normal, MSK:Normal, SKIN:Normal, NEURO:Normal, :Normal laboratory and microbiology Laboratory Tests 03/26/25 05:11 Test 03/26/25 05:11 Range/Units Serum Glucose 132 H 74-106 mg/dL Microbiology Date/Time Source Procedure Growth Status 03/21/25 12:00 Nose MRSA Screen - Final Complete 03/21/25 01:20 Voided Urine Urine Culture - Final Escherichia coli Klebsiella pneumoniae Complete 03/20/25 20:58 Blood Blood Culture - Final NO GROWTH AFTER 5 DAYS OF INCUBATION. Complete Problem List/Assessment/Plan Problem List/Assessment/Plan #1 right hip fracture: -conservative treatment - high risk for surgery #2 sepsis with uti: iv levaquin #3 liver cirrhosis with hep C #4 uncontrolled dm: ssi #5 encephalopathy- metabolic #6 anemia #7 hep c #8 ?mets lung cancer advance care planning- dnr- time spent 19 mins Plan discussed with: Patient My Orders My Orders Orders - REMA MIDDLETON MD Procedure Category Date Status Time * Singing Teacher CONS 03/27/25 Transmitted Consult Glucose Blood PHA 03/27/25 Transmitted (Accu-Chek Comfort 17:00 Bedtime Insulin Scale PHA 03/27/25 Transmitted 22:00 Moderate Insulin Ss PHA 03/27/25 Transmitted 17:00 Dextrose 50% Syringe PHA 03/27/25 Transmitted 12:15 Dietary Evaluation Review Recommendations by RD: Protein Supplementation Comments: 1) Add 80g hepatic restriction to 60g CCHO diet 2) Initiate NutriHep qd - encourageo optimal PO intake 3) Follow-up with cardiology, hepatology, and oncology 4) Continue to monitor I&O, labs, and skin integrity Expected Outcomes/Goals: 1) appetite and labs to improve 2) wounds to improve 3) f/u in 3-5 days Date of Service: Mar 27, 2025 Billing Provider: REMA MIDDLETON MD Common Visit Codes: [id number] INP/OBS CARE(HIGH) Secondary Visit Codes: [id number] CARE PLAN 30 MINUTES REMA MIDDLETON MD Mar 27, 2025 12:05
[2025-03-27] MEDS ORDERED: DEXTROSE (50%) 50ML SYRG IV PRN (12:15)
[2025-03-27] MEDS: InsuLIN REG 1unit/0.01ml Soln (100units/ml) SC SCH ×2 (18:03→21:56)
[2025-03-27] MEDS: ACCU-CHEK COMFORT CURVE STRIP VI SCH (18:27)
[2025-03-28 01:00] VITALS: BP 141/81; PULSE 90; RESP 19; TEMP 97.5; O2SAT 98
[2025-03-28 05:00] VITALS: BP 118/71; PULSE 94; RESP 18; TEMP 97.7; O2SAT 97
[2025-03-28 09:00] VITALS: BP 118/73; PULSE 92; RESP 17; TEMP 98.6; O2SAT 96
[2025-03-28 13:00] VITALS: BP 122/78; PULSE 89; RESP 17; TEMP 98.2; O2SAT 95
--- NOTE | 2025-03-28 14:29 | DVHPN2 ---
Progress Note Date Seen: Mar 28, 2025 Medical Necessity Reason Pt with a Central, PICC or Fol: Yes The following are medically ne: Razo Catheter Reason for razo catheter: Strict I&O Subjective Patient reports: No new complaints Review of Systems: HEENT:Normal, CVS:Normal, RESPIRATORY:Normal, GI:Normal, :Normal, MSK:Normal, NEURO:Normal Objective vital signs Vital Sign Date Time Temp Pulse Resp B/P (MAP) Pulse Ox O2 Delivery O2 Flow Rate FiO2 03/28/25 13:00 98.2 89 17 122/78 (93) 95 98.2 03/27/25 20:00 Room Air* 0 21 Total Intake and Output 03/27/25 03/27/25 03/28/25 15:00 23:00 07:00 Intake Total 700 ml 650 ml 240 ml Output Total 225 ml 275 ml Balance 700 ml 425 ml -35 ml medications Current Medications Medications Dose Ordered Sig/[place] Route Start Time Stop Time Status Last Admin Dose Admin Acetaminophen 325 mg Q4HP PRN PO 03/20/25 23:30 03/24/25 02:24 325 MG Enoxaparin Sodium 40 mg DAILY SC 03/21/25 10:00 03/28/25 09:19 40 MG Dextrose 50 ml UD PRN IV 03/20/25 23:30 Cancel Hydroxyzine HCl 10 mg Q6HP PRN PO 03/23/25 17:30 03/28/25 09:19 10 MG Morphine Sulfate 2 mg Q4HPRN PRN IV 03/24/25 22:00 03/28/25 10:13 2 MG Levofloxacin/ Dextrose 100 ml @ 100 mls/hr DAILY IV 03/26/25 10:00 03/28/25 09:20 100 MLS/HR Acetaminophen/ Hydrocodone Bitart 1 tab Q6HPRN PRN PO 03/25/25 12:30 03/27/25 12:32 1 TAB Diagnostic Test (Pha) 1 strip ACHS 03/27/25 17:00 03/28/25 11:30 1 STRIP Insulin Human Regular HS SC 03/27/25 22:00 03/27/25 21:56 3 UNITS Insulin Human Regular AC SC 03/27/25 17:00 03/28/25 12:02 3 UNITS Dextrose 50 ml UD PRN IV 03/27/25 12:15 Examination: GENERAL:Normal, HEENT:Normal, NECK:Normal, LUNGS:Normal, CVS:Normal, ABDOMEN:Normal, MSK:Normal, SKIN:Normal, NEURO:Normal, :Normal laboratory and microbiology Laboratory Tests 03/26/25 05:11 Test 03/26/25 05:11 Range/Units Serum Glucose 132 H 74-106 mg/dL Microbiology Date/Time Source Procedure Growth Status 03/21/25 12:00 Nose MRSA Screen - Final Complete 03/21/25 01:20 Voided Urine Urine Culture - Final Escherichia coli Klebsiella pneumoniae Complete 03/20/25 20:58 Blood Blood Culture - Final NO GROWTH AFTER 5 DAYS OF INCUBATION. Complete Problem List/Assessment/Plan Problem List/Assessment/Plan #1 right hip fracture: -conservative treatment - high risk for surgery #2 sepsis with uti: iv levaquin #3 liver cirrhosis with hep C #4 uncontrolled dm: ssi #5 encephalopathy- metabolic #6 anemia #7 hep c #8 ?mets lung cancer advance care planning- dnr- time spent 19 mins Plan discussed with: Patient Dietary Evaluation Review Recommendations by RD: Protein Supplementation Comments: 1) Add 80g hepatic restriction to 60g CCHO diet 2) Initiate NutriHep qd - encourageo optimal PO intake 3) Follow-up with cardiology, hepatology, and oncology 4) Continue to monitor I&O, labs, and skin integrity Expected Outcomes/Goals: 1) appetite and labs to improve 2) wounds to improve 3) f/u in 3-5 days Date of Service: Mar 28, 2025 Billing Provider: REMA MIDDLETON MD Common Visit Codes: [id number] INP/OBS CARE(HIGH) Secondary Visit Codes: [id number] CARE PLAN 30 MINUTES REMA MIDDLETON MD Mar 28, 2025 14:29
[2025-03-28 17:00] VITALS: BP 116/75; PULSE 94; RESP 17; TEMP 98.4; O2SAT 98
[2025-03-28 21:00] VITALS: BP 116/74; PULSE 91; RESP 20; TEMP 97.5; O2SAT 96
[2025-03-29] VITALS (7 sets, daily range): BP systolic 106–136; BP diastolic 69–88; PULSE 84–91; RESP 16–18; TEMP 97.5–98.2; O2SAT 97–99
[2025-03-29] MEDS: levoFLOXacin 500 MG TAB PO SCH (12:29)
--- NOTE | 2025-03-29 14:45 | DVHPN2 ---
Reviewed: Care Plan, H&P, Labs, Medications, Previous Orders, Radiology Changes from previous H/P or p: No Changes General: Per HPI Objective Vitals Vital Signs Date Time Temp Pulse Resp B/P (MAP) Pulse Ox O2 Delivery O2 Flow Rate FiO2 03/29/25 14:14 91 17 130/96 03/29/25 13:00 97.5 99 97.5 03/28/25 20:00 Room Air* 0 21 Intake/Output Intake and Output 03/29/25 07:00 Intake Total 1110 ml Output Total 700 ml Balance 410 ml Intake Oral 1010 ml IV Total 100 ml Output Urine Total 700 ml # Bowel Movements 1 General Appearance: Alert, Oriented X3, Cooperative HEENT: Atraumatic Lungs: Clear to auscultation Cardiovascular: Regular rate Abdomen: Normal bowel sounds, Soft, No tenderness Medications Current Medications Medications Dose Ordered Sig/[place] Route Start Time Stop Time Status Last Admin Dose Admin Acetaminophen 325 mg Q4HP PRN PO 03/20/25 23:30 03/24/25 02:24 325 MG Enoxaparin Sodium 40 mg DAILY SC 03/21/25 10:00 03/29/25 09:19 40 MG Dextrose 50 ml UD PRN IV 03/20/25 23:30 Cancel Hydroxyzine HCl 10 mg Q6HP PRN PO 03/23/25 17:30 03/28/25 23:15 10 MG Morphine Sulfate 2 mg Q4HPRN PRN IV 03/24/25 22:00 03/29/25 14:14 2 MG Acetaminophen/ Hydrocodone Bitart 1 tab Q6HPRN PRN PO 03/25/25 12:30 03/29/25 12:41 1 TAB Diagnostic Test (Pha) 1 strip ACHS 03/27/25 17:00 03/29/25 11:30 1 STRIP Insulin Human Regular HS SC 03/27/25 22:00 03/28/25 22:00 4 UNITS Insulin Human Regular AC SC 03/27/25 17:00 03/29/25 12:38 3 UNITS Dextrose 50 ml UD PRN IV 03/27/25 12:15 Levofloxacin 500 mg DAILY PO 03/29/25 10:00 03/29/25 12:29 500 MG Laboratory Results Laboratory Tests 03/26/25 05:11 Urinalysis Test 03/21/25 01:20 Urine Color Dark-brown (Yellow) Urine Clarity Ex.turbid (Clear) Urine pH 5.5 (5.0-9.0) Urine Specific [place] 1.025 (1.001-1.035) Urine Protein 2+ (Negative) H Urine Ketones Negative (Negative) Urine Blood 2+ /uL (Negative) H Urine Nitrite Negative (Negative) Urine Bilirubin Negative (Negative) Urine Urobilinogen Normal mg/dL (Negative) Urine Leukocyte Esterase 3+ /uL (Negative) Urine RBC 40 /hpf (0 - 4) Urine WBC Clumps Present /hpf (None Seen) Urine Microscopic WBC 1912 /HPF (0-5) H Urine Squamous Epithelial Cells None seen /hpf (<5) Urine Bacteria Mod /hpf (None Seen) H Urine Glucose 2+ mg/dL (Normal) H Microbiology Microbiology Date/Time Source Procedure Growth Status 03/21/25 12:00 Nose MRSA Screen - Final Complete 03/21/25 01:20 Voided Urine Urine Culture - Final Escherichia coli Klebsiella pneumoniae Complete 03/20/25 20:58 Blood Blood Culture - Final NO GROWTH AFTER 5 DAYS OF INCUBATION. Complete Assessment/Plan Assessment/Plan #1 right hip fracture: -conservative treatment - high risk for surgery #2 sepsis with uti: iv levaquin #3 liver cirrhosis with hep C #4 uncontrolled dm: ssi #5 encephalopathy- metabolic #6 anemia #7 hep c #8 ?mets lung cancer 03/29/2025: pt is supposed to have PT/OT and possible needs SNF. non surgical, Pt agreed to SNF Plan discussed with: Patient Date of Service: Mar 29, 2025 Billing Provider: JOSEP HERNDON DO Common Visit Codes: [id number] INP/OBS CARE(HIGH) JOSEP HERNDON DO Mar 29, 2025 14:45
[2025-03-30 01:00] VITALS: BP 121/69; PULSE 83; RESP 22; TEMP 97.8; O2SAT 98
[2025-03-30 05:00] VITALS: BP 114/67; PULSE 87; RESP 17; TEMP 98.1; O2SAT 96
[2025-03-30 08:52] VITALS: BP 108/64; PULSE 103; RESP 19; TEMP 97.8; O2SAT 99
[2025-03-30 13:00] VITALS: BP 120/74; PULSE 86; RESP 17; TEMP 97.9; O2SAT 98
[2025-03-30] MEDS: POLYETHYLENE GLYCOL 17 GM PWDR PO ONE (14:08)
[2025-03-30] MEDS: DOCUSATE SOD 100 MG CAP PO PRN (14:08)
[2025-03-30 17:00] VITALS: BP 123/81; PULSE 93; RESP 16; TEMP 97.5; O2SAT 98
[2025-03-30 21:00] VITALS: BP 120/81; PULSE 91; RESP 20; TEMP 98.3; O2SAT 97
[2025-03-31 01:00] VITALS: BP 119/80; PULSE 87; RESP 20; TEMP 96.6; O2SAT 99
[2025-03-31 05:00] VITALS: BP 120/87; PULSE 94; RESP 20; TEMP 98; O2SAT 98
[2025-03-31 09:04] VITALS: BP 122/82; PULSE 104; RESP 18; TEMP 97.2; O2SAT 97
[2025-03-31 12:50] VITALS: BP 123/80; PULSE 93; RESP 12; TEMP 97.8; O2SAT 96
[2025-03-31 17:00] VITALS: BP 110/77; PULSE 89; RESP 12; TEMP 98.1; O2SAT 98
[2025-03-31 21:00] VITALS: BP 132/90; PULSE 90; RESP 18; TEMP 97.8; O2SAT 99
[2025-04-01 01:00] VITALS: BP 128/84; PULSE 89; RESP 18; TEMP 97.5; O2SAT 98
[2025-04-01 05:00] VITALS: BP 115/78; PULSE 92; RESP 18; TEMP 97.4; O2SAT 98
[2025-04-01 08:00] VITALS: PULSE 87; RESP 16; O2SAT 98
[2025-04-01 09:00] VITALS: BP 104/68; PULSE 91; RESP 16; TEMP 98.3; O2SAT 97
[2025-04-01 09:12] VITALS: BP 104/68; PULSE 91; RESP 16; TEMP 98.3; O2SAT 97
--- NOTE | 2025-04-01 12:03 | DVHDS ---
DATE OF DISCHARGE: 04/01/2025 HISTORY OF PRESENT ILLNESS: The patient is a 70-year-old lady who was admitted with history of fall and subsequent pain in the right hip. The patient has a history of CHF, hypertension, diabetes, COPD, chronic respiratory failure, liver cirrhosis, hepatitis C, and questionable lung cancer. HOSPITAL COURSE: The patient had blood sugars that were elevated at 546. The patient's enzymes were elevated. Her hep C was positive. The patient had a hip x-ray that showed right femoral fracture. The patient had a CT of the abdomen and pelvis that showed evidence of cholelithiasis. The patient was seen in Orthopedics consult by Dr. Ramírez who deemed the surgery to be high risk for surgery. The patient will now be discharged in hospice once arrangements have been made. FINAL DIAGNOSES: Therefore: * Right hip fracture with conservative treatment. * Sepsis with UTI. * Liver cirrhosis with hepatitis C. * Uncontrolled diabetes. * Encephalopathy, metabolic. * Anemia. * Hepatitis C. * Questionable lung cancer. * Hospice care. Time spent in discharge planning and review of plan with the patient and nursing was 39 minutes. MD MATTHIEU Benavidez/BART TID: [id number] RECEIPT: [id number]
--- NOTE | 2025-04-01 12:26 | DVHDS2 ---
Discharge Summary Date of Admission Mar 20, 2025 at 23:22 Date of Discharge: Apr 01, 2025 Labs/Diagnostic Data: Laboratory Results Test 04/01/25 11:28 03/26/25 05:11 03/23/25 10:45 03/22/25 05:52 POC Glucose 221 mg/dl (70-106) White Blood Count 6.8 10^3/uL (4.4-10.8) Red Blood Count 3.40 10^6/uL (4.0-5.20) Hemoglobin 9.4 g/dL (12.2-16.2) Hematocrit 28.0 % (36.0-46.0) Mean Corpuscular Volume 82.1 fL (80.0-100.0) Mean Corpuscular Hemoglobin 27.5 pg (28.0-32.0) Mean Corpuscular Hemoglobin Concent 33.5 g/dL (32.0-36.0) Red Cell Distribution Width 14.7 % (11.8-14.3) Platelet Count 218 10^3/uL (140-450) Mean Platelet Volume 8.8 fL (6.9-10.8) Neutrophils (%) (Auto) 47.9 % (37.0-80.0) Lymphocytes (%) (Auto) 37.7 % (10.0-50.0) Monocytes (%) (Auto) 13.0 % (0.0-12.0) Eosinophils (%) (Auto) 0.9 % (0.0-7.0) Basophils (%) (Auto) 0.5 % (0.0-2.0) Neutrophils # (Auto) 3.3 10 ^3/uL (1.6-8.6) Lymphocytes # (Auto) 2.6 10 ^3/uL (0.4-5.4) Monocytes # (Auto) 0.9 10 ^3/uL (0-1.3) Eosinophils # (Auto) 0.1 10 ^3/uL (0-0.8) Basophils # (Auto) 0 10 ^3/uL (0-0.2) Nucleated Red Blood Cells 0.1 % Sodium Level 136 mmol/L (136-145) Potassium Level 4.2 mmol/L (3.5-5.1) Chloride Level 103 mmol/L (98-107) Carbon Dioxide Level 24 mmol/L (20-31) Anion Gap 9 (5-15) Blood Urea Nitrogen 12 mg/dL (9-23) Creatinine 0.50 mg/dL (0.550-1.02) Glomerular Filtration Rate Calc 100 mL/min (>90) BUN/Creatinine Ratio 24.0 (10.0-20.0) Serum Glucose 132 mg/dL (74-106) Calcium Level 7.7 mg/dL (8.7-10.4) Total Bilirubin 1.0 mg/dL (0.2-1.0) Aspartate Amino Transferase (AST) 76 U/L (13-40) Alanine Aminotransferase (ALT) 86 U/L (7-40) Alkaline Phosphatase 247 U/L (46-116) Total Protein 5.7 g/dL (5.7-8.2) Albumin 2.7 g/dL (3.2-4.8) Vancomycin Level Trough 13.9 ug/mL (5-10) Ammonia 25 umol/L (11-32) Test 03/21/25 16:31 03/21/25 12:40 03/21/25 05:39 03/21/25 01:40 Hepatitis A IgM Antibody Negative Hepatitis B Surface Antigen Negative (Negative) Hepatitis B Core IgM Antibody Negative (Negative) Hepatitis C Antibody Positive (Negative) Influenza Type A Antigen Negative (Negative) Influenza Type B Antigen Negative (Negative) SARS-CoV-2 Antigen (Rapid) Negative (NEGATIVE) Phosphorus Level 2.6 mg/dL (2.4-5.1) Magnesium Level 2.0 mg/dL (1.6-2.6) Beta-Hydroxybutyric Acid 0.070 mmol/L (< 0.4) Thyroid Stimulating Hormone (TSH) 0.44 uIU/mL (0.55-4.78) Blood Gas Specimen Type Arterial Blood Gas Sample Site Right radial Blood Gas Patient Temperature 37.0 Arterial Blood Date Drawn Arterial Blood pH 7.422 (7.350-7.450) Arterial Blood Partial Pressure CO2 35.9 mmHg (32.0-45.0) Arterial Blood Partial Pressure O2 67.3 mmHg (83.0-108.0) Arterial Blood HCO3 22.9 mmol/L (21.0-28.0) Arterial Blood Oxygen Saturation 94.0 % (94.0-98.0) Arterial Blood Base Excess -1.2 mmol/L (-2.0-3.0) Arterial Blood Oxyhemoglobin 92.4 % (94.0-98.0) Arterial Blood Carboxyhemoglobin 1.3 % (0.5-1.5) Arterial Blood Methemoglobin 0.4 % (0.0-1.5) Azam Test Yes Blood Gas Total Hemoglobin 11.20 g/dL (12.0-16.0) Blood Gas Modality Room air FiO2 % 21.0 Test 03/21/25 01:20 03/20/25 20:50 Urine Color Dark-brown (Yellow) Urine Clarity Ex.turbid (Clear) Urine pH 5.5 (5.0-9.0) Urine Specific [place] 1.025 (1.001-1.035) Urine Protein 2+ (Negative) Urine Ketones Negative (Negative) Urine Blood 2+ /uL (Negative) Urine Nitrite Negative (Negative) Urine Bilirubin Negative (Negative) Urine Urobilinogen Normal mg/dL (Negative) Urine Leukocyte Esterase 3+ /uL (Negative) Urine RBC 40 /hpf (0 - 4) Urine WBC Clumps Present /hpf (None Seen) Urine Microscopic WBC 1912 /HPF (0-5) Urine Squamous Epithelial Cells None seen /hpf (<5) Urine Bacteria Mod /hpf (None Seen) Urine Glucose 2+ mg/dL (Normal) Urine Opiates Screen Neg (NEGATIVE) Urine Fentanyl Screen Neg (NEGATIVE) Urine Barbiturates Screen Neg (NEGATIVE) Urine Phencyclidine Screen Neg (NEGATIVE) Urine Amphetamines Screen Neg (NEGATIVE) Urine Benzodiazepines Screen Neg (NEGATIVE) Urine Cocaine Screen Neg (NEGATIVE) Urine Cannabinoids Screen Neg (NEGATIVE) Prothrombin Time 12.3 sec (9.3-11.8) Prothrombin Time INR 1.18 (0.9-1.15) Activated Partial Thromboplast Time 29.5 SEC (24.5-34.5) Hemoglobin A1c > 14.0 % A1C (<5.7) Lactic Acid Level 1.4 mmol/L (0.4-2.0) Vitamin B12 Level 2203 pg/mL (211-911) Vitamin D 25-Hydroxy 33.3 ng/mL (30.0-100) Other Laboratory Tests 03/26/25 05:11 Brief Hx & Hospital Course: see dictated note Condition at Discharge: Guarded Final Diagnosis/Problems List hip fracture Discharge Disposition: Hospice - Home Discharge Instruct/Medications Diet: Cardiac 2g Na,low cholest Activity: No Restrictions, As Tolerated Follow Up/Referral: fu with hospice Medications: per hospice dc with razo Scheduled Aspirin (Aspir-81), 1 TAB PO DAILY, (Reported) Furosemide (Furosemide), 1 TAB PO DAILY, (Reported) Gabapentin (Gabapentin), 1 CAP PO TID, (Reported) Haloperidol (Haldol), 1 TAB PO QPM, (Reported) Hydroxyzine Hcl (Hydroxyzine Hcl), 1 TAB PO TID, (Reported) Lorazepam (Lorazepam), 1 TAB PO TID, (Reported) Potassium Chloride (Klor-Con M10), 1 TAB PO DAILY, (Reported) Temazepam (Temazepam), 1 CAP PO QPM, (Reported) Trazodone Hcl (Trazodone Hcl), 1 TAB PO QPM, (Reported) Miscellaneous Medications Oxycodone Hcl (Oxycodone Hcl), 5 MG PO, (Reported) Pantoprazole Sodium (Pantoprazole Sodium), 40 MG PO, (Reported) Discharge Statement: "Patient was advised to return to the ER or call 911 if any headaches, dizziness, shortness of breath, chest pain, abdominal pain, bleeding, fevers, or worsening of medical condition. Patient was counseled about treatment plan, medications, possible side effects, patientverbalized understanding. All questions were answered to the best of my ability. This discharge took greater then 30 minutes in planning, reviewing documentation, counseling the patient, and discussing with other team members." ASSESSMENT ASSESSMENT Assessment hip fracture Date of Service: Apr 01, 2025 Billing Provider: REMA MIDDLETON MD Common Visit Codes: [id number] DISCH DAY >30min REMA MIDDLETON MD Apr 01, 2025 12:26
[2025-04-01 13:00] VITALS: BP 118/79; PULSE 88; RESP 16; TEMP 98.1; O2SAT 97
--- NOTE | 2025-04-01 20:14 | DVHPN2 ---
Reviewed: Care Plan, H&P, Labs, Medications, Previous Orders, Radiology Changes from previous H/P or p: No Changes General: Per HPI Objective Vitals Vital Signs Date Time Temp Pulse Resp B/P (MAP) Pulse Ox O2 Delivery O2 Flow Rate FiO2 04/01/25 13:00 98.1 88 16 118/79 (92) 97 98.1 04/01/25 08:00 Room Air* 0 21 Intake/Output Intake and Output 04/01/25 07:00 Intake Total 860 ml Output Total 500 ml Balance 360 ml Intake Oral 860 ml Output Urine Total 500 ml # Bowel Movements 1 General Appearance: Alert, Oriented X3, Cooperative HEENT: Atraumatic Lungs: Clear to auscultation Cardiovascular: Regular rate Abdomen: Normal bowel sounds, Soft, No tenderness Medications Current Medications Medications Dose Ordered Sig/[place] Route Start Time Stop Time Status Last Admin Dose Admin Dextrose 50 ml UD PRN IV 03/20/25 23:30 Cancel Laboratory Results Laboratory Tests 03/26/25 05:11 Urinalysis Test 03/21/25 01:20 Urine Color Dark-brown (Yellow) Urine Clarity Ex.turbid (Clear) Urine pH 5.5 (5.0-9.0) Urine Specific [place] 1.025 (1.001-1.035) Urine Protein 2+ (Negative) H Urine Ketones Negative (Negative) Urine Blood 2+ /uL (Negative) H Urine Nitrite Negative (Negative) Urine Bilirubin Negative (Negative) Urine Urobilinogen Normal mg/dL (Negative) Urine Leukocyte Esterase 3+ /uL (Negative) Urine RBC 40 /hpf (0 - 4) Urine WBC Clumps Present /hpf (None Seen) Urine Microscopic WBC 1912 /HPF (0-5) H Urine Squamous Epithelial Cells None seen /hpf (<5) Urine Bacteria Mod /hpf (None Seen) H Urine Glucose 2+ mg/dL (Normal) H Microbiology Microbiology Date/Time Source Procedure Growth Status 03/21/25 12:00 Nose MRSA Screen - Final Complete 03/21/25 01:20 Voided Urine Urine Culture - Final Escherichia coli Klebsiella pneumoniae Complete 03/20/25 20:58 Blood Blood Culture - Final NO GROWTH AFTER 5 DAYS OF INCUBATION. 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
--- NOTE | 2025-04-01 20:15 | DVHPN2 ---
Reviewed: Care Plan, H&P, Labs, Medications, Previous Orders, Radiology Changes from previous H/P or p: No Changes General: Per HPI Objective Vitals Vital Signs Date Time Temp Pulse Resp B/P (MAP) Pulse Ox O2 Delivery O2 Flow Rate FiO2 04/01/25 13:00 98.1 88 16 118/79 (92) 97 98.1 04/01/25 08:00 Room Air* 0 21 Intake/Output Intake and Output 04/01/25 07:00 Intake Total 860 ml Output Total 500 ml Balance 360 ml Intake Oral 860 ml Output Urine Total 500 ml # Bowel Movements 1 General Appearance: Alert, Oriented X3, Cooperative HEENT: Atraumatic Lungs: Clear to auscultation Cardiovascular: Regular rate Abdomen: Normal bowel sounds, Soft, No tenderness Medications Current Medications Medications Dose Ordered Sig/[place] Route Start Time Stop Time Status Last Admin Dose Admin Dextrose 50 ml UD PRN IV 03/20/25 23:30 Cancel Laboratory Results Laboratory Tests 03/26/25 05:11 Urinalysis Test 03/21/25 01:20 Urine Color Dark-brown (Yellow) Urine Clarity Ex.turbid (Clear) Urine pH 5.5 (5.0-9.0) Urine Specific [place] 1.025 (1.001-1.035) Urine Protein 2+ (Negative) H Urine Ketones Negative (Negative) Urine Blood 2+ /uL (Negative) H Urine Nitrite Negative (Negative) Urine Bilirubin Negative (Negative) Urine Urobilinogen Normal mg/dL (Negative) Urine Leukocyte Esterase 3+ /uL (Negative) Urine RBC 40 /hpf (0 - 4) Urine WBC Clumps Present /hpf (None Seen) Urine Microscopic WBC 1912 /HPF (0-5) H Urine Squamous Epithelial Cells None seen /hpf (<5) Urine Bacteria Mod /hpf (None Seen) H Urine Glucose 2+ mg/dL (Normal) H Microbiology Microbiology Date/Time Source Procedure Growth Status 03/21/25 12:00 Nose MRSA Screen - Final Complete 03/21/25 01:20 Voided Urine Urine Culture - Final Escherichia coli Klebsiella pneumoniae Complete 03/20/25 20:58 Blood Blood Culture - Final NO GROWTH AFTER 5 DAYS OF INCUBATION. Complete Assessment/Plan Assessment/Plan #1 right hip fracture: -conservative treatment - high risk for surgery #2 sepsis with uti: iv levaquin #3 liver cirrhosis with hep C #4 uncontrolled dm: ssi #5 encephalopathy- metabolic #6 anemia #7 hep c #8 ?mets lung cancer possible hospice candidate Plan discussed with: Patient Date of Service: Mar 31, 2025 Billing Provider: JOSEP HERNDON DO Common Visit Codes: [id number] INP/OBS CARE(HIGH) JOSEP HERNDON DO Apr 01, 2025 20:15
== END 2025-04-01 14:20 | disposition hospice, home (50) | DRG 871 ==
LOC: ER 19:30 → EDBD 19:30 → OVERFLOW 23:22 → WEST WING 03-21 02:22 → TELE-WESTW 03-21 23:54 → OVERFLOW 03-21 23:55 → TELE-WESTW 03-21 23:57 → WEST WING 03-27 23:15
PROVIDERS: ADMIT Internal Medicine; ATTEND Internal Medicine
DX: A41.51 Sepsis due to Escherichia coli [E. coli] (principal); G93.41 Metabolic encephalopathy; S72.21XA Displaced subtrochanteric fracture of right femur, initial encounter for closed fracture; D61.818 Other pancytopenia; C34.90 Malignant neoplasm of unspecified part of unspecified bronchus or lung; J96.10 Chronic respiratory failure, unspecified whether with hypoxia or hypercapnia; Z66 Do not resuscitate; Z20.822 Contact with and (suspected) exposure to COVID-19; B19.20 Unspecified viral hepatitis C without hepatic coma; K74.60 Unspecified cirrhosis of liver; E11.65 Type 2 diabetes mellitus with hyperglycemia; N30.90 Cystitis, unspecified without hematuria; D64.9 Anemia, unspecified; K57.30 Diverticulosis of large intestine without perforation or abscess without bleeding; K80.20 Calculus of gallbladder without cholecystitis without obstruction; F03.90 Unspecified dementia, unspecified severity, without behavioral disturbance, psychotic disturbance, mood disturbance, and anxiety; J44.89 Other specified chronic obstructive pulmonary disease; I11.0 Hypertensive heart disease with heart failure; I50.9 Heart failure, unspecified; E78.5 Hyperlipidemia, unspecified; W01.0XXA Fall on same level from slipping, tripping and stumbling without subsequent striking against object, initial encounter; I25.10 Atherosclerotic heart disease of native coronary artery without angina pectoris; B96.1 Klebsiella pneumoniae [K. pneumoniae] as the cause of diseases classified elsewhere; Z88.5 Allergy status to narcotic agent; Z88.2 Allergy status to sulfonamides; Z87.891 Personal history of nicotine dependence; Z80.9 Family history of malignant neoplasm, unspecified; Y93.89 Activity, other specified; Y92.89 Other specified places as the place of occurrence of the external cause; Y99.8 Other external cause status; Z51.5 Encounter for palliative care; Z79.899 Other long term (current) drug therapy
CPT/HCPCS: 36415; 36600; 70450; 71045; 73502; 74176; 80053; 80074; 80202; 80307; 81001; 82010; 82140; 82306; 82565; 82607; 82805; 82962; 83036; 83605; 83735; 84100; 84443; 85025; 85610; 85730; 87040; 87081; 87086; 87088; 87186; 87426; 87804; 93005; 96365; 96372; 97110; 97163; 97530; G0378; J1335; J1815; J1885; J1956; J2543